=== PATIENT | female | born 1935 | race Caucasian/White ===

== ENCOUNTER 2016-08-28 19:04 | Inpatient (IN) | payer MEDICARE, OTHER ==
[2016-08-28 20:37] LABS: ABSOLUTE BASOPHILS # (AUTO) 0.1 10^3/uL (0.0-0.2); ABSOLUTE LYMPHOCYTES (AUTO) 0.7 10^3/uL (0.5-4.7); ABSOLUTE MONOCYTES (AUTO) 0.6 10^3/uL (0.1-1.4); ABSOLUTE NEUT (AUTO) 6.3 10^3/uL (1.7-8.2); BASOPHILS % (AUTO) 0.9 % (0-2); HEMATOCRIT 34.6 % (36.0-47.0); HEMOGLOBIN 10.6 g/dL (12.0-15.5); HGB HCT DIFFERENCE -2.8; MEAN CORPUSCULAR HEMOGLOBIN 29.9 pg (27.0-33.4); MEAN CORPUSCULAR HGB CONC 30.5 g/dL (32.0-36.0); MEAN CORPUSCULAR VOLUME 98 fl (80-97); MONOCYTES % (AUTO) 7.3 % (3-13); RED BLOOD COUNT 3.53 10^6/uL (3.72-5.28); RED CELL DISTRIBUTION WIDTH 17.8 % (11.5-14.0); SEGMENTED NEUTROPHILS % (AUTO) 82.8 % (42-78); WHITE BLOOD COUNT 7.6 10^3/uL (4.0-10.5)
[2016-08-28 20:42] LABS: PROTHROMBIN TIME 13.7 SEC (11.4-15.4)
[2016-08-28 20:54] LABS: VENOUS BLOOD BASE EXCESS 7.2 mmol/L
[2016-08-28 20:56] LABS: ALANINE AMINOTRANSFERASE 31 U/L (9-52); ALBUMIN 3.7 g/dL (3.5-5.0); ALKALINE PHOSPHATASE 98 U/L (38-126); ANION GAP 10 (5-19); ASPARTATE AMINO TRANSFERASE 23 U/L (14-36); BILIRUBIN,TOTAL 0.4 mg/dL (0.2-1.3); BLOOD UREA NITROGEN 33 mg/dL (7-20); CALCIUM 8.4 mg/dL (8.4-10.2); CARBON DIOXIDE 38 mmol/L (22-30); CHLORIDE 93 mmol/L (98-107); CREATININE RESULT 1.25 mg/dL (0.52-1.25); GLUCOSE 117 mg/dL (75-110); POTASSIUM 5.7 mmol/L (3.6-5.0); SODIUM 140.6 mmol/L (137-145); TOTAL PROTEIN 6.8 g/dL (6.3-8.2)
[2016-08-28 20:59] LABS: VENOUS BLOOD PH 7.09 (7.30-7.42)
--- NOTE | 2016-08-28 21:03 | ER Document Report ---
[id number] ALTERED MENTAL STATUS Mode of Arrival: Medic Information source: Parent Notes: 81-year-old female DO NOT RESUSCITATE presents from home with altered mental status decreased responsiveness Family notes that she was doing well yesterday was noted to be decreased responsiveness today. Patient is supposed to be on BiPAP per refuses to wear it. TRAVEL OUTSIDE OF THE [place] IN LAST 30 DAYS: No - HPI Onset: This morning Onset/Duration: Sudden Quality of pain: No pain Severity: Severe Pain Level: Denies Associated symptoms: Slow to respond, Weakness Exacerbated by: Denies Relieved by: Denies Similar symptoms previously: Yes Recently seen / treated by doctor: Yes - Related Data Allergies/Adverse Reactions: No Known Allergies Allergy (Verified 12/22/15 11:44) Past Medical History - Social History Smoking Status: Never Smoker Cigarette use (# per day): No Chew tobacco use (# tins/day): No Smoking Education Provided: No Family History: Reviewed & Not Pertinent - Past Medical History Cardiac Medical History: Reports: Hx Atrial Fibrillation, Hx Congestive Heart Failure, Hx Coronary Artery Disease, Hx Heart Attack, Hx Hypercholesterolemia, Hx Hypertension Pulmonary Medical History: Reports: Hx COPD, Hx Pneumonia Denies: Hx Tuberculosis Endocrine Medical History: Reports: Hx Diabetes Mellitus Type 1, Hx Diabetes Mellitus Type 2 Musculoskeltal Medical History: Reports Hx Arthritis Psychiatric Medical History: Denies: Hx Depression Past Surgical History: Reports: Hx Appendectomy, Hx Cardiac Catheterization, Hx Orthopedic Surgery - back surgery. Denies: Hx Pacemaker - Immunizations Immunizations up to date: Yes Hx Diphtheria, Pertussis, Tetanus Vaccination: No Hx Pneumococcal Vaccination: 09/04/02 Review of Systems - Review of Systems -: Yes ROS unobtainable due to patient's medical condition Physical Exam - Vital signs Vitals: Resp Pulse Ox 10 L 97 08/28/16 20:10 08/28/16 20:10 PHYSICAL EXAMINATION: GENERAL: Chronically ill-appearing female HEAD: Atraumatic, normocephalic. EYES: Pupils equal round and reactive to light, extraocular movements intact, conjunctiva are normal. ENT: Nares patent, oropharynx clear without exudates. Moist mucous membranes. NECK: Normal range of motion, supple without lymphadenopathy LUNGS: Decreased breath sounds all throughout HEART: Regular rate and rhythm without murmurs ABDOMEN: Soft, nontender, nondistended abdomen. No guarding, no rebound. No masses appreciated. Female : deferred Musculoskeletal: Normal range of motion, no pitting or edema. No cyanosis. NEUROLOGICAL: Patient moans to sternal rub GCS 7 SKIN: Warm, Dry, normal turgor, no rashes or lesions noted. Course - Re-evaluation Re-evalutation: 08/28/16 22:51 I spoke with son and primary care physician, they'll agree that the patient is a DO NOT RESUSCITATE, otherwise this patient would require intubation as she is minimally responsive. I did place her on BiPAP given that her CO2 is quite elevated and her VBG notes respiratory acidosis. I explained to the family that I have very poor prognosis for this patient I will admit to the primary care physician continue BiPAP - Vital Signs Vital signs: Temp Pulse Resp BP Pulse Ox 10 L 97 08/28/16 20:10 08/28/16 20:10 - Laboratory Result Diagrams: 08/28/16 19:50 08/28/16 19:50 Laboratory results interpreted by me: 08/28/16 08/28/16 08/28/16 19:50 19:50 19:50 RBC 3.53 L Hgb 10.6 L Hct 34.6 L MCV 98 H MCHC 30.5 L RDW 17.8 H Seg Neutrophils % 82.8 H Lymphocytes % 9.0 L VBG pH VBG pCO2 VBG HCO3 Potassium 5.7 H Chloride 93 L Carbon Dioxide 38 H BUN 33 H Est GFR ( Amer) 50 L Est GFR (Non-Af Amer) 41 L Glucose 117 H Lactic Acid 0.6 L 08/28/16 20:40 RBC Hgb Hct MCV MCHC RDW Seg Neutrophils % Lymphocytes % VBG pH 7.09 L* VBG pCO2 139.0 H* VBG HCO3 41.0 H Potassium Chloride Carbon Dioxide BUN Est GFR ( Amer) Est GFR (Non-Af Amer) Glucose Lactic Acid - Diagnostic Test Radiology reviewed: Image reviewed, Reports reviewed - EKG Interpretation by Me EKG shows normal: Sinus rhythm, Valencia, Intervals, QRS Complexes Valencia/QRS: LBBB Critical Care Note - Critical Care Note Total time excluding time spent on procedures (mins): 45 Comments: 45 minutes of critical care time spent in direct contact evaluating and reevaluating the patient, treating symptoms, reviewing labs and studies and speaking with family and consultants excluding any procedures Discharge - Discharge Clinical Impression: Acute combined systolic (congestive) and diastolic (congestive) heart failure, Elevated CO2 level, Respiratory distress, minimally responsive, Altered awareness, transient Condition: Stable Disposition: ADMITTED INPATIENT Admitting Provider: [facility] Unit Admitted: Telemetry
--- NOTE | 2016-08-28 21:31 | EKG REPORT ---
SEVERITY:- ABNORMAL ECG - SINUS RHYTHM MULTIPLE ATRIAL PREMATURE COMPLEXES LEFT BUNDLE BRANCH BLOCK : Confirmed by: Seth Osuna MD 28-Aug-2016 21:30:46
[2016-08-28] MEDS ORDERED: ASPIRIN 81 MG TABLET, ENT COATED PO ONE (23:00)
[2016-08-28 23:05] LABS: AMORPHOUS SEDIMENT,URINE 1+ /HPF; APPEARANCE,URINE CLOUDY; BILIRUBIN,URINE NEGATIVE (NEGATIVE); GLUCOSE, URINE NEGATIVE (NEGATIVE); KETONES,URINE NEGATIVE (NEGATIVE); LEUKOCYTE ESTERASE,URINE NEGATIVE (NEGATIVE); NITRITE,URINE NEGATIVE (NEGATIVE); PROTEIN,URINE 100 mg/dL (NEGATIVE); URINE SPECIFIC GRAVITY 1.023; UROBILINOGEN,URINE NEGATIVE mg/dL (<2.0)
[2016-08-28] MEDS ORDERED: LEVALBUTEROL HCL NEB 0.63 MG/3 ML AMPUL NEB PRN (23:26)
[2016-08-28] MEDS ORDERED: NORMAL SALINE 250 ML with FUROSEMIDE 250 MG IV PRN ×2 (23:32)
[2016-08-28] MEDS ORDERED: ATORVASTATIN CALCIUM 20 MG TABLET PO ONE (23:45)
[2016-08-28] MEDS ORDERED: VALSARTAN PO SCH (23:45)
[2016-08-28] MEDS ORDERED: DONEPEZIL HCL 5 MG TABLET PO ONE (23:45)
[2016-08-28] MEDS ORDERED: METOPROLOL SUCCINATE 25 MG TAB.SR.24H PO ONE (23:45)
[2016-08-28] MEDS ORDERED: (PENDING PHARMACY ID) (Linagliptin [Tradjenta] 5 MG) PO SCH (23:45)
[2016-08-28] MEDS ORDERED: (PENDING PHARMACY ID) (Solifenacin Succinate [Vesicare] 5 MG) PO SCH (23:45)
[2016-08-28] MEDS ORDERED: SACUBITRIL PO SCH (23:45)
[2016-08-29] MEDS ORDERED: TOLTERODINE TARTRATE 1 MG TABLET PO ONE (00:30)
[2016-08-29] MEDS ORDERED: SITAGLIPTIN PHOSPHATE 50 MG TABLET PO ONE (00:30)
[2016-08-29 00:54] LABS: LIPASE 17.8 U/L (23-300); MAGNESIUM 2.1 mg/dL (1.6-2.3); PHOSPHORUS 4.8 mg/dL (2.5-4.5)
[2016-08-29 01:01] LABS: PROTHROMBIN TIME 13.9 SEC (11.4-15.4)
[2016-08-29 01:02] LABS: PARTIAL THROMBOPLASTIN TIME 29.8 SEC (23.5-35.8)
[2016-08-29 01:20] LABS: CREATINE KINASE MB 0.78 ng/mL (<4.55); TROPONIN I 0.087 ng/mL
[2016-08-29 01:26] LABS: THYROID STIMULATING HORMONE 1.45 uIU/mL (0.47-4.68)
[2016-08-29 01:47] LABS: URINE BARBITURATES SCREEN NEGATIVE; URINE METHADONE SCREEN NEGATIVE; URINE PHENCYCLIDINE SCREEN NEGATIVE
[2016-08-29] MEDS ORDERED: LORAZEPAM INJ 2 MG/1 ML VIAL IV ONE (02:00)
[2016-08-29] MEDS ORDERED: AMLODIPINE BESYLATE 5 MG TABLET PO ONE (02:00)
[2016-08-29 07:50] LABS: ABSOLUTE EOSINOPHILS # (AUTO) 0.1 10^3/uL (0.0-0.6); ABSOLUTE LYMPHOCYTES (AUTO) 0.7 10^3/uL (0.5-4.7); ABSOLUTE MONOCYTES (AUTO) 0.6 10^3/uL (0.1-1.4); ABSOLUTE NEUT (AUTO) 5.4 10^3/uL (1.7-8.2); BASOPHILS % (AUTO) 0.7 % (0-2); EOSINOPHILS % (AUTO) 0.9 % (0-6); HEMOGLOBIN 10.2 g/dL (12.0-15.5); HGB HCT DIFFERENCE -2.4; LYMPHOCYTES % (AUTO) 10.8 % (13-45); MEAN CORPUSCULAR HEMOGLOBIN 29.7 pg (27.0-33.4); MEAN CORPUSCULAR HGB CONC 30.8 g/dL (32.0-36.0); MEAN CORPUSCULAR VOLUME 96 fl (80-97); MONOCYTES % (AUTO) 8.1 % (3-13); RED BLOOD COUNT 3.42 10^6/uL (3.72-5.28); RED CELL DISTRIBUTION WIDTH 17.1 % (11.5-14.0); SEGMENTED NEUTROPHILS % (AUTO) 79.5 % (42-78); WHITE BLOOD COUNT 6.8 10^3/uL (4.0-10.5)
[2016-08-29 08:08] LABS: ALANINE AMINOTRANSFERASE 32 U/L (9-52); ALBUMIN 3.5 g/dL (3.5-5.0); ALKALINE PHOSPHATASE 80 U/L (38-126); ANION GAP 8 (5-19); ASPARTATE AMINO TRANSFERASE 29 U/L (14-36); BILIRUBIN,TOTAL 0.5 mg/dL (0.2-1.3); BLOOD UREA NITROGEN 40 mg/dL (7-20); CALCIUM 8.9 mg/dL (8.4-10.2); CARBON DIOXIDE 37 mmol/L (22-30); CHLORIDE 97 mmol/L (98-107); CHOLESTEROL 200.61 mg/dL (0-200); CREATINE KINASE 47 U/L (30-135); CREATININE RESULT 1.05 mg/dL (0.52-1.25); Direct HDL 66 mg/dL (>40); GLUCOSE 90 mg/dL (75-110); POTASSIUM 5.5 mmol/L (3.6-5.0); TOTAL PROTEIN 6.6 g/dL (6.3-8.2); TRIGLYCERIDES 93 mg/dL (<150)
[2016-08-29 08:19] LABS: DIRECT LDL 112 mg/dL (<100)
[2016-08-29 08:20] LABS: CREATINE KINASE MB 0.79 ng/mL (<4.55); TROPONIN I 0.099 ng/mL
[2016-08-29] MEDS ORDERED: SUCCINYLCHOLINE CHLORIDE INJ 200 MG/10 ML VIAL ONE (09:51)
[2016-08-29] MEDS ORDERED: DONEPEZIL HCL 5 MG TABLET PO SCH (10:00)
[2016-08-29] MEDS ORDERED: SITAGLIPTIN PHOSPHATE 50 MG TABLET PO SCH (10:00)
[2016-08-29] MEDS ORDERED: ASPIRIN 81 MG TABLET, ENT COATED PO SCH (10:00)
[2016-08-29] MEDS ORDERED: TOLTERODINE TARTRATE 1 MG TABLET PO SCH (10:00)
[2016-08-29] MEDS: HEPARIN SOD (PORCINE) 5,000 UNIT/ML 1 ML SYRINGE SUBCUT SCH ×3 (10:10→22:03)
[2016-08-29] MEDS: METOPROLOL SUCCINATE 25 MG TAB.SR.24H PO SCH (10:10)
[2016-08-29 13:56] LABS: CREATINE KINASE MB 0.74 ng/mL (<4.55); TROPONIN I 0.092 ng/mL
[2016-08-29 15:32] LABS: ARTERIAL BLOOD BASE EXCESS 10.6 mmol/L; ARTERIAL BLOOD O2 SATURATION 95.3 % (94-98)
[2016-08-29] MEDS ORDERED: PHARMACY COMMUNICATION ORDER MC NR (17:15)
--- NOTE | 2016-08-29 17:39 | PDOC H&P ---
History of Present Illness Admission Date/PCP: 08/28/16 23:27 NOELLE GILES, History of Present Illness: YAMIL DELUNA is a 81 year old female with history of chronic combined systolic and diastolic heart failure, chronic obstructive pulmonary disease, she came to the emergency room last night because of altered mental status. She was found to have hypercapnia with venous PCO2 139 and pH 7.09, she was started on positive pressure ventilation, BiPAP. When I saw her on the BiPAP. She was not responding to verbal commands. Repeat ABG was done on FiO2 of 40% was done it showed pH 7.29, PCO2 84 .3., I spoke to patient spouse,the POA and he wants her intubated. The last time she was admitted in this hospital was 07/04/2016 and she was discharged on 07/21/2016. On that admission she had acute hypercapnic respiratory failure and she required positive pressure ventilation. On that admission, but she was not intubated at that time. No history could be obtained from this patient, but she is well-known to me. The ER physician notes suggest she was a DO NOT RESUSCITATE but her spouse did not confirm that to me, so the DO NOT RESUSCITATE status is rescinded and she is a full code Past Medical History Cardiac Medical History: Reports: Atrial Fibrillation, Congestive Heart Failure , Coronary Artery Disease, Myocardial Infarction, Hyperlipidema, Hypertension Pulmonary Medical History: Reports: Chronic Obstructive Pulmonary Disease (COPD) , Pneumonia Endocrine Medical History: Reports: Diabetes Mellitus Type 2 Musculoskeltal Medical History: Reports: Arthritis Past Surgical History Past Surgical History: Reports: Appendectomy, Cardiac Catheterization, Orthopedic Surgery - back surgery Denies: Pacemaker Social History Smoking Status: Former Smoker Frequency of Alcohol Use: None Hx Recreational Drug Use: No Drugs: None Hx Prescription Drug Abuse: No - Advance Directive Resuscitation Status: Do Not Resuscitate Family History Family History: Reviewed & Not Pertinent Parental Family History Reviewed: Yes Children Family History Reviewed: Yes Sibling(s) Family History Reviewed.: Yes Medication/Allergy Home Medications: Aspirin [Aspirin EC] 81 mg PO DAILY 12/08/15 Atorvastatin Calcium 1 tab PO DAILY 12/08/15 Gabapentin 1 tab PO BID 12/08/15 Linagliptin [Tradjenta] 1 tab PO DAILY 12/08/15 Metoprolol Succinate [Toprol Xl] 25 mg PO DAILY 12/08/15 Solifenacin Succinate [Vesicare] 5 mg PO DAILY 12/08/15 Furosemide [Lasix 40 mg Tablet] 40 mg PO QAM #30 tablet 01/02/16 Albuterol Sulfate [Proair HFA Inhalation Aerosol 8.5 gm MDI] 2 puff IH Q4 PRN Oxycodone HCl/Acetaminophen [Oxycodon-Acetaminophen 7.5-325] 1 tab PO Q8 PRN Donepezil HCl [Aricept 5 mg Tablet] 5 mg PO DAILY #30 tablet 07/20/16 Donepezil HCl [Aricept 5 mg Tablet] 1 tab PO DAILY 08/28/16 Sacubitril/Valsartan [Entresto 49 mg/51 mg Tablet] 1 tab PO BID 08/28/16 Venlafaxine HCl ER [Effexor Xr 75 mg Cap.sr] 75 mg PO DAILY 08/28/16 Allergies/Adverse Reactions: No Known Allergies Allergy (Verified 08/28/16 23:38) Review of Systems ROS unobtainable: Due to mental status - She is confused with metabolic encephalopathy Physical Exam Vital Signs: Temp Pulse Resp BP Pulse Ox 98.0 F 95 15 149/62 H 97 08/29/16 12:46 08/29/16 14:00 08/29/16 12:54 08/29/16 12:46 08/29/16 12:54 Intake & Output 08/28/16 08/29/16 08/30/16 06:59 06:59 06:59 Intake Total 0 Output Total 250 Balance -250 0 Weight 60.9 kg General appearance: PRESENT: other - She is on BiPAP Respiratory exam: PRESENT: crackles, rhonchi Cardiovascular exam: PRESENT: +S1, +S2 GI/Abdominal exam: PRESENT: soft Neurological exam: PRESENT: other - Unresponsive Results Laboratory Results: 08/29/16 07:33 08/29/16 07:33 08/29/16 08/29/16 08/29/16 00:11 00:11 00:11 WBC RBC Hgb Hct MCV MCH MCHC RDW Plt Count Seg Neutrophils % Lymphocytes % Monocytes % Eosinophils % Basophils % Absolute Neutrophils Absolute Lymphocytes Absolute Monocytes Absolute Eosinophils Absolute Basophils Carbonic Acid HCO3/H2CO3 Ratio ABG pH ABG pCO2 ABG pO2 ABG HCO3 ABG O2 Saturation ABG Base Excess FiO2 Sodium Potassium Chloride Carbon Dioxide Anion Gap BUN Creatinine Est GFR ( Amer) Est GFR (Non-Af Amer) Glucose Calcium Phosphorus 4.8 H Magnesium 2.1 Total Bilirubin AST ALT Alkaline Phosphatase Ammonia 12.8 Total Protein Albumin Triglycerides Cholesterol LDL Cholesterol Direct VLDL Cholesterol HDL Cholesterol Amylase 38 Lipase 17.8 L TSH 1.45 Free T4 1.56 08/29/16 08/29/16 08/29/16 07:33 07:33 15:10 WBC 6.8 RBC 3.42 L Hgb 10.2 L Hct 33.0 L MCV 96 MCH 29.7 MCHC 30.8 L RDW 17.1 H Plt Count 155 Seg Neutrophils % 79.5 H Lymphocytes % 10.8 L Monocytes % 8.1 Eosinophils % 0.9 Basophils % 0.7 Absolute Neutrophils 5.4 Absolute Lymphocytes 0.7 Absolute Monocytes 0.6 Absolute Eosinophils 0.1 Absolute Basophils 0.0 Carbonic Acid 2.54 H HCO3/H2CO3 Ratio 15:1 ABG pH 7.29 L ABG pCO2 84.3 H* ABG pO2 88.6 ABG HCO3 40.0 H ABG O2 Saturation 95.3 ABG Base Excess 10.6 FiO2 40% Sodium 142.0 Potassium 5.5 H Chloride 97 L Carbon Dioxide 37 H Anion Gap 8 BUN 40 H Creatinine 1.05 Est GFR ( Amer) > 60 Est GFR (Non-Af Amer) 50 L Glucose 90 Calcium 8.9 Phosphorus Magnesium Total Bilirubin 0.5 AST 29 ALT 32 Alkaline Phosphatase 80 Ammonia Total Protein 6.6 Albumin 3.5 Triglycerides 93 Cholesterol 200.61 H LDL Cholesterol Direct 112 H VLDL Cholesterol 19.0 HDL Cholesterol 66 Amylase Lipase TSH Free T4 08/29/16 08/29/16 08/29/16 00:11 00:11 00:11 Creatine Kinase 41 CK-MB (CK-2) 0.78 Troponin I 0.087 NT-Pro-B Natriuret Pep [id number] H 08/29/16 08/29/16 08/29/16 07:33 07:33 13:04 Creatine Kinase 47 38 CK-MB (CK-2) 0.79 Troponin I 0.099 NT-Pro-B Natriuret Pep 08/29/16 13:04 Creatine Kinase CK-MB (CK-2) 0.74 Troponin I 0.092 NT-Pro-B Natriuret Pep Impressions: Chest X-Ray 08/28/16 19:21 IMPRESSION: MODERATE PULMONARY EDEMA WITH BILATERAL PLEURAL EFFUSIONS. Assessment & Plan - Diagnosis (1) Acute hypercapnic respiratory failure Is this a current diagnosis for this admission?: YesPlan: This is most likely due to acute systolic and diastolic heart failure, she would require mechanical ventilation (2) Acute combined systolic (congestive) and diastolic (congestive) heart failure Is this a current diagnosis for this admission?: YesPlan: continue anti chf (3) Chronic obstructive pulmonary disease Qualifiers: COPD type: chronic bronchitis Chronic bronchitis type: unspecified Qualified Code(s): J42 - Unspecified chronic bronchitis Is this a current diagnosis for this admission?: Yes
[2016-08-29 18:19] LABS: ABSOLUTE BASOPHILS # (AUTO) 0.1 10^3/uL (0.0-0.2); ABSOLUTE EOSINOPHILS # (AUTO) 0.1 10^3/uL (0.0-0.6); ABSOLUTE LYMPHOCYTES (AUTO) 1.1 10^3/uL (0.5-4.7); ABSOLUTE MONOCYTES (AUTO) 0.5 10^3/uL (0.1-1.4); ABSOLUTE NEUT (AUTO) 6.4 10^3/uL (1.7-8.2); BASOPHILS % (AUTO) 1.7 % (0-2); EOSINOPHILS % (AUTO) 0.8 % (0-6); HEMATOCRIT 33.3 % (36.0-47.0); HEMOGLOBIN 10.4 g/dL (12.0-15.5); HGB HCT DIFFERENCE -2.1; LYMPHOCYTES % (AUTO) 13.2 % (13-45); MEAN CORPUSCULAR HEMOGLOBIN 29.5 pg (27.0-33.4); MEAN CORPUSCULAR HGB CONC 31.1 g/dL (32.0-36.0); MEAN CORPUSCULAR VOLUME 95 fl (80-97); MONOCYTES % (AUTO) 6.5 % (3-13); RED BLOOD COUNT 3.51 10^6/uL (3.72-5.28); RED CELL DISTRIBUTION WIDTH 17.4 % (11.5-14.0); SEGMENTED NEUTROPHILS % (AUTO) 77.8 % (42-78); WHITE BLOOD COUNT 8.2 10^3/uL (4.0-10.5)
[2016-08-29 18:31] LABS: ARTERIAL BLOOD O2 SATURATION 95.5 % (94-98)
[2016-08-29 18:37] LABS: ALANINE AMINOTRANSFERASE 33 U/L (9-52); ALBUMIN 3.8 g/dL (3.5-5.0); ALKALINE PHOSPHATASE 96 U/L (38-126); ASPARTATE AMINO TRANSFERASE 27 U/L (14-36); BILIRUBIN,TOTAL 0.6 mg/dL (0.2-1.3); BLOOD UREA NITROGEN 37 mg/dL (7-20); CHLORIDE 93 mmol/L (98-107); CREATININE RESULT 1.02 mg/dL (0.52-1.25); GLUCOSE 96 mg/dL (75-110); SODIUM 141.5 mmol/L (137-145)
[2016-08-29 18:44] LABS: ANION GAP 9 (5-19)
[2016-08-29 18:47] LABS: CARBON DIOXIDE 40 mmol/L (22-30)
[2016-08-29] MEDS ORDERED: PROPOFOL 100 ML IV ONE (18:55)
[2016-08-29] MEDS ORDERED: PROPOFOL INJ 200 MG/20 ML VIAL IV ONE (19:06)
[2016-08-29] MEDS ORDERED: LORAZEPAM 24 MG/240 ML BAG IV ONE (19:27)
[2016-08-29] MEDS ORDERED: NOREPINEPHRINE BITARTRATE INJ/PF 4 MG/4 ML SDV IV ONE (19:27)
[2016-08-29] MEDS ORDERED: PROPOFOL 100 ML IV SCH (20:15)
[2016-08-29] MEDS: ATORVASTATIN CALCIUM 20 MG TABLET NG SCH (22:03)
[2016-08-29] MEDS: TOLTERODINE TARTRATE 1 MG TABLET NG SCH (22:03)
[2016-08-29] MEDS: PROPOFOL 100 ML IV PRN (23:54)
[2016-08-30] MEDS: LORAZEPAM 24 MG/ D5W 240 ML IV PRN ×2 (01:53→22:25)
[2016-08-30] MEDS: PROPOFOL 100 ML IV PRN ×3 (04:04→22:24)
[2016-08-30 04:28] LABS: ABSOLUTE BASOPHILS # (AUTO) 0.1 10^3/uL (0.0-0.2); ABSOLUTE EOSINOPHILS # (AUTO) 0.2 10^3/uL (0.0-0.6); ABSOLUTE LYMPHOCYTES (AUTO) 1.7 10^3/uL (0.5-4.7); ABSOLUTE MONOCYTES (AUTO) 0.5 10^3/uL (0.1-1.4); ABSOLUTE NEUT (AUTO) 4.3 10^3/uL (1.7-8.2); BASOPHILS % (AUTO) 1.5 % (0-2); EOSINOPHILS % (AUTO) 2.5 % (0-6); HEMATOCRIT 29.3 % (36.0-47.0); HEMOGLOBIN 9.5 g/dL (12.0-15.5); HGB HCT DIFFERENCE -0.8; MEAN CORPUSCULAR HGB CONC 32.2 g/dL (32.0-36.0); MEAN CORPUSCULAR VOLUME 93 fl (80-97); RED BLOOD COUNT 3.16 10^6/uL (3.72-5.28); WHITE BLOOD COUNT 6.8 10^3/uL (4.0-10.5)
[2016-08-30 04:47] LABS: ALANINE AMINOTRANSFERASE 30 U/L (9-52); ALBUMIN 2.7 g/dL (3.5-5.0); ALKALINE PHOSPHATASE 78 U/L (38-126); ASPARTATE AMINO TRANSFERASE 21 U/L (14-36); BILIRUBIN,TOTAL 0.7 mg/dL (0.2-1.3); BLOOD UREA NITROGEN 36 mg/dL (7-20); CALCIUM 8.5 mg/dL (8.4-10.2); CREATININE RESULT 0.98 mg/dL (0.52-1.25); GLUCOSE 77 mg/dL (75-110); TOTAL PROTEIN 5.6 g/dL (6.3-8.2)
[2016-08-30] MEDS: HEPARIN SOD (PORCINE) 5,000 UNIT/ML 1 ML SYRINGE SUBCUT SCH ×3 (05:06→22:24)
[2016-08-30 05:07] LABS: ANION GAP 10 (5-19); CHLORIDE 89 mmol/L (98-107); SODIUM 136.7 mmol/L (137-145)
[2016-08-30 05:14] LABS: CARBON DIOXIDE 38 mmol/L (22-30); POTASSIUM 3.8 mmol/L (3.6-5.0)
[2016-08-30 07:59] LABS: ARTERIAL BLOOD BASE EXCESS 19.1 mmol/L; ARTERIAL BLOOD O2 SATURATION 95.6 % (94-98)
[2016-08-30] MEDS: METOPROLOL SUCCINATE 25 MG TAB.SR.24H PO SCH (10:01)
[2016-08-30] MEDS: SITAGLIPTIN PHOSPHATE 50 MG TABLET NG SCH (10:01)
[2016-08-30] MEDS: DONEPEZIL HCL 5 MG TABLET NG SCH (10:01)
[2016-08-30] MEDS: ASPIRIN 81 MG TABLET, CHEWABLE NG SCH (10:02)
[2016-08-30] MEDS: TOLTERODINE TARTRATE 1 MG TABLET NG SCH ×2 (10:03→22:24)
[2016-08-30 10:34] LABS: ARTERIAL BLOOD BASE EXCESS 20.4 mmol/L; ARTERIAL BLOOD O2 SATURATION 97.1 % (94-98)
[2016-08-30 13:53] LABS: ARTERIAL BLOOD BASE EXCESS 18.6 mmol/L; ARTERIAL BLOOD O2 SATURATION 97.3 % (94-98)
--- NOTE | 2016-08-30 16:21 | PDOC CONSULTATION ---
Consultation Consult Date: 08/30/16 Attending physician:: NOELLE GILES Consult reason:: hypercapnic resp fail History of Present Illness Admission Date/PCP: 08/28/16 23:27 NOELLE GILES, History of Present Illness: YAMIL DELUNA is a 81 year old female with history of chronic combined systolic and diastolic heart failure, chronic obstructive pulmonary disease, she came to the emergency room last night because of altered mental status. She was found to have hypercapnia with venous PCO2 139 and pH 7.09, she was started on positive pressure ventilation, BiPAP. When I saw her on the BiPAP. She was not responding to verbal commands. Repeat ABG was done on FiO2 of 40% was done it showed pH 7.29, PCO2 84 .3., I spoke to patient spouse,the POA and he wants her intubated. The last time she was admitted in this hospital was 07/04/2016 and she was discharged on 07/21/2016. On that admission she had acute hypercapnic respiratory failure and she required positive pressure ventilation. On that admission, but she was not intubated at that time. No history could be obtained from this patient, but she is well-known to me. The ER physician notes suggest she was a DO NOT RESUSCITATE but her spouse did not confirm that to me, so the DO NOT RESUSCITATE status is rescinded and she is a full code no family member at bedside all information obtained was from active chart and prior medical records Past Medical History Cardiac Medical History: Reports: Atrial Fibrillation, Congestive Heart Failure , Coronary Artery Disease, Myocardial Infarction, Hyperlipidema, Hypertension Pulmonary Medical History: Reports: Chronic Obstructive Pulmonary Disease (COPD) , Pneumonia Denies: Tuberculosis Endocrine Medical History: Reports: Diabetes Mellitus Type 1, Diabetes Mellitus Type 2 Musculoskeltal Medical History: Reports: Arthritis Psychiatric Medical History: Denies: Depression Past Surgical History Past Surgical History: Reports: Appendectomy, Cardiac Catheterization, Orthopedic Surgery - back surgery Denies: Pacemaker Social History Information Source: [facility] Records Lives with: Family Smoking Status: Former Smoker Passive smoke exposure as: Both Frequency of Alcohol Use: None Hx Recreational Drug Use: No Drugs: None Hx Prescription Drug Abuse: No - Advance Directive Resuscitation Status: Do Not Resuscitate Family History Family History: Reviewed & Not Pertinent Parental Family History Reviewed: No Children Family History Reviewed: No Sibling(s) Family History Reviewed.: No Medication/Allergy Home Medications: Aspirin [Aspirin EC] 81 mg PO DAILY 12/08/15 Atorvastatin Calcium 1 tab PO DAILY 12/08/15 Gabapentin 1 tab PO BID 12/08/15 Linagliptin [Tradjenta] 1 tab PO DAILY 12/08/15 Metoprolol Succinate [Toprol Xl] 25 mg PO DAILY 12/08/15 Solifenacin Succinate [Vesicare] 5 mg PO DAILY 12/08/15 Furosemide [Lasix 40 mg Tablet] 40 mg PO QAM #30 tablet 01/02/16 Albuterol Sulfate [Proair HFA Inhalation Aerosol 8.5 gm MDI] 2 puff IH Q4 PRN Oxycodone HCl/Acetaminophen [Oxycodon-Acetaminophen 7.5-325] 1 tab PO Q8 PRN Donepezil HCl [Aricept 5 mg Tablet] 5 mg PO DAILY #30 tablet 07/20/16 Donepezil HCl [Aricept 5 mg Tablet] 1 tab PO DAILY 08/28/16 Sacubitril/Valsartan [Entresto 49 mg/51 mg Tablet] 1 tab PO BID 08/28/16 Venlafaxine HCl ER [Effexor Xr 75 mg Cap.sr] 75 mg PO DAILY 08/28/16 Allergies/Adverse Reactions: No Known Allergies Allergy (Verified 08/28/16 23:38) Review of Systems ROS unobtainable: Due to endotracheal tube Physical Exam Vital Signs: Temp Pulse Resp BP Pulse Ox 97.8 F 79 12 140/46 H 98 08/29/16 17:17 08/30/16 07:00 08/30/16 08:07 08/30/16 08:07 08/30/16 08:35 Intake & Output 08/29/16 08/30/16 08/31/16 06:59 06:59 06:59 Intake Total 558 Output Total 360 0964 125 Balance -250 -1863 -125 Weight 60.9 kg 59.3 kg General appearance: PRESENT: no acute distress, disheveled, thin, well-developed , well-nourished Head exam: PRESENT: atraumatic, normocephalic Eye exam: PRESENT: conjunctiva pale Mouth exam: PRESENT: dry mucosa, neck supple, tongue midline, other - ET tube intact Neck exam: ABSENT: carotid bruit, JVD, lymphadenopathy, thyromegaly Respiratory exam: PRESENT: decreased breath sounds, prolonged expiratory phas, rales, symmetrical, unlabored, wheezes Cardiovascular exam: PRESENT: irregular rhythm GI/Abdominal exam: PRESENT: normal bowel sounds, soft. ABSENT: distended, guarding, mass, organolmegaly, rebound, tenderness Rectal exam: PRESENT: deferred Gentrourinary exam: PRESENT: indwelling catheter Musculoskeletal exam: PRESENT: normal inspection Skin exam: PRESENT: dry, warm Results Laboratory Results: 08/30/16 04:03 08/30/16 04:03 08/29/16 08/29/16 08/29/16 15:10 18:00 18:00 WBC 8.2 RBC 3.51 L Hgb 10.4 L Hct 33.3 L MCV 95 MCH 29.5 MCHC 31.1 L RDW 17.4 H Plt Count 181 Seg Neutrophils % 77.8 Lymphocytes % 13.2 Monocytes % 6.5 Eosinophils % 0.8 Basophils % 1.7 Absolute Neutrophils 6.4 Absolute Lymphocytes 1.1 Absolute Monocytes 0.5 Absolute Eosinophils 0.1 Absolute Basophils 0.1 Carbonic Acid 2.54 H HCO3/H2CO3 Ratio 15:1 ABG pH 7.29 L ABG pCO2 84.3 H* ABG pO2 88.6 ABG HCO3 40.0 H ABG O2 Saturation 95.3 ABG Base Excess 10.6 FiO2 40% Sodium 141.5 Potassium 5.0 Chloride 93 L Carbon Dioxide 40 H* Anion Gap 9 BUN 37 H Creatinine 1.02 Est GFR ( Amer) > 60 Est GFR (Non-Af Amer) 52 L Glucose 96 Calcium 9.0 Total Bilirubin 0.6 AST 27 ALT 33 Alkaline Phosphatase 96 Total Protein 7.0 Albumin 3.8 Triglycerides 08/29/16 08/29/16 08/30/16 18:00 18:15 04:03 WBC 6.8 RBC 3.16 L Hgb 9.5 L Hct 29.3 L MCV 93 MCH 30.0 MCHC 32.2 RDW 17.0 H Plt Count 169 Seg Neutrophils % 63.0 Lymphocytes % 25.0 Monocytes % 8.0 Eosinophils % 2.5 Basophils % 1.5 Absolute Neutrophils 4.3 Absolute Lymphocytes 1.7 Absolute Monocytes 0.5 Absolute Eosinophils 0.2 Absolute Basophils 0.1 Carbonic Acid 2.81 H HCO3/H2CO3 Ratio 14:1 ABG pH 7.27 L ABG pCO2 93.2 H* ABG pO2 93.0 ABG HCO3 42.1 H ABG O2 Saturation 95.5 ABG Base Excess 12.0 FiO2 50% Sodium Potassium Chloride Carbon Dioxide Anion Gap BUN Creatinine Est GFR ( Amer) Est GFR (Non-Af Amer) Glucose Calcium Total Bilirubin AST ALT Alkaline Phosphatase Total Protein Albumin Triglycerides 112 08/30/16 08/30/16 04:03 07:35 WBC RBC Hgb Hct MCV MCH MCHC RDW Plt Count Seg Neutrophils % Lymphocytes % Monocytes % Eosinophils % Basophils % Absolute Neutrophils Absolute Lymphocytes Absolute Monocytes Absolute Eosinophils Absolute Basophils Carbonic Acid 1.27 HCO3/H2CO3 Ratio 33:1 ABG pH 7.62 H* ABG pCO2 42.1 ABG pO2 64.9 L ABG HCO3 42.2 H ABG O2 Saturation 95.6 ABG Base Excess 19.1 FiO2 35% Sodium 136.7 L Potassium 3.8 D Chloride 89 L Carbon Dioxide 38 H Anion Gap 10 BUN 36 H Creatinine 0.98 Est GFR ( Amer) > 60 Est GFR (Non-Af Amer) 54 L Glucose 77 Calcium 8.5 Total Bilirubin 0.7 AST 21 ALT 30 Alkaline Phosphatase 78 Total Protein 5.6 L Albumin 2.7 L Triglycerides 08/29/16 08/29/16 08/29/16 00:11 00:11 00:11 Creatine Kinase 41 CK-MB (CK-2) 0.78 Troponin I 0.087 NT-Pro-B Natriuret Pep 37672 H 08/29/16 08/29/16 08/29/16 07:33 07:33 13:04 Creatine Kinase 47 38 CK-MB (CK-2) 0.79 Troponin I 0.099 NT-Pro-B Natriuret Pep 08/29/16 13:04 Creatine Kinase CK-MB (CK-2) 0.74 Troponin I 0.092 NT-Pro-B Natriuret Pep Impressions: Chest X-Ray 08/30/16 00:00 IMPRESSION: Slight improvement since yesterday. No pneumothorax. Assessment & Plan - Diagnosis (1) Acute combined systolic (congestive) and diastolic (congestive) heart failure Is this a current diagnosis for this admission?: YesPlan: Judicious diuresis (2) Altered awareness, transient Is this a current diagnosis for this admission?: YesPlan: CO2 narcosis (3) Acute hypercapnic respiratory failure Is this a current diagnosis for this admission?: YesPlan: Ventilating well this far cautious not to over ventilate and become too far removed from her baseline (4) Acute hypoxemic respiratory failure Is this a current diagnosis for this admission?: YesPlan: Oxygenating well goal to keep sats between 90 and 92% - Time Critical Time spent with patient: 35 or more minutes - 55 minute
--- NOTE | 2016-08-30 20:46 | PDOC PROGRESS REPORT ---
Subjective Progress Note for:: 08/30/16 Subjective:: Patient sedated and intubated in intensive care unit Physical Exam Vital Signs: Temp Pulse Resp BP Pulse Ox 98.6 F 99 9 L 145/67 H 98 08/30/16 18:00 08/30/16 18:00 08/30/16 19:38 08/30/16 19:38 08/30/16 19:38 Intake & Output 08/29/16 08/30/16 08/31/16 06:59 06:59 06:59 Intake Total 558 250 Output Total 250 9702 3210 Balance -250 -4180 -1223 Weight 60.9 kg 59.3 kg Eye exam: PRESENT: PERRLA Respiratory exam: PRESENT: decreased breath sounds Cardiovascular exam: PRESENT: +S1, +S2 GI/Abdominal exam: PRESENT: soft Results Laboratory Results: 08/30/16 04:03 08/30/16 04:03 08/30/16 08/30/16 08/30/16 04:03 04:03 07:35 WBC 6.8 RBC 3.16 L Hgb 9.5 L Hct 29.3 L MCV 93 MCH 30.0 MCHC 32.2 RDW 17.0 H Plt Count 169 Seg Neutrophils % 63.0 Lymphocytes % 25.0 Monocytes % 8.0 Eosinophils % 2.5 Basophils % 1.5 Absolute Neutrophils 4.3 Absolute Lymphocytes 1.7 Absolute Monocytes 0.5 Absolute Eosinophils 0.2 Absolute Basophils 0.1 Carbonic Acid 1.27 HCO3/H2CO3 Ratio 33:1 ABG pH 7.62 H* ABG pCO2 42.1 ABG pO2 64.9 L ABG HCO3 42.2 H ABG O2 Saturation 95.6 ABG Base Excess 19.1 FiO2 35% Sodium 136.7 L Potassium 3.8 D Chloride 89 L Carbon Dioxide 38 H Anion Gap 10 BUN 36 H Creatinine 0.98 Est GFR ( Amer) > 60 Est GFR (Non-Af Amer) 54 L Glucose 77 Calcium 8.5 Total Bilirubin 0.7 AST 21 ALT 30 Alkaline Phosphatase 78 Total Protein 5.6 L Albumin 2.7 L 08/30/16 08/30/16 10:13 13:34 WBC RBC Hgb Hct MCV MCH MCHC RDW Plt Count Seg Neutrophils % Lymphocytes % Monocytes % Eosinophils % Basophils % Absolute Neutrophils Absolute Lymphocytes Absolute Monocytes Absolute Eosinophils Absolute Basophils Carbonic Acid 1.53 H 1.66 H HCO3/H2CO3 Ratio 29:1 26:1 ABG pH 7.57 H 7.52 H ABG pCO2 50.9 H 55.1 H ABG pO2 82.0 88.7 ABG HCO3 45.1 H 44.3 H ABG O2 Saturation 97.1 97.3 ABG Base Excess 20.4 18.6 FiO2 35% 35% Sodium Potassium Chloride Carbon Dioxide Anion Gap BUN Creatinine Est GFR ( Amer) Est GFR (Non-Af Amer) Glucose Calcium Total Bilirubin AST ALT Alkaline Phosphatase Total Protein Albumin 08/29/16 08/29/16 08/29/16 00:11 00:11 00:11 Creatine Kinase 41 CK-MB (CK-2) 0.78 Troponin I 0.087 NT-Pro-B Natriuret Pep [id number] H 08/29/16 08/29/16 08/29/16 07:33 07:33 13:04 Creatine Kinase 47 38 CK-MB (CK-2) 0.79 Troponin I 0.099 NT-Pro-B Natriuret Pep 08/29/16 13:04 Creatine Kinase CK-MB (CK-2) 0.74 Troponin I 0.092 NT-Pro-B Natriuret Pep Impressions: Chest X-Ray 08/30/16 00:00 IMPRESSION: Slight improvement since yesterday. No pneumothorax. Assessment & Plan - Diagnosis (1) Acute hypercapnic respiratory failure Is this a current diagnosis for this admission?: Yes (2) Acute combined systolic (congestive) and diastolic (congestive) heart failure Is this a current diagnosis for this admission?: Yes (3) Chronic obstructive pulmonary disease Qualifiers: COPD type: chronic bronchitis Chronic bronchitis type: unspecified Qualified Code(s): J42 - Unspecified chronic bronchitis Is this a current diagnosis for this admission?: Yes (4) Hypotension Qualifiers: Hypotension type: unspecified hypotension type Qualified Code(s): I95.9 - Hypotension, unspecified Is this a current diagnosis for this admission?: YesPlan: She is on intravenous norepinephrine
[2016-08-30] MEDS: ATORVASTATIN CALCIUM 20 MG TABLET NG SCH (22:24)
[2016-08-31 04:21] LABS: ABSOLUTE BASOPHILS # (AUTO) 0.1 10^3/uL (0.0-0.2); ABSOLUTE EOSINOPHILS # (AUTO) 0.3 10^3/uL (0.0-0.6); ABSOLUTE LYMPHOCYTES (AUTO) 1.2 10^3/uL (0.5-4.7); ABSOLUTE MONOCYTES (AUTO) 0.6 10^3/uL (0.1-1.4); ABSOLUTE NEUT (AUTO) 4.4 10^3/uL (1.7-8.2); BASOPHILS % (AUTO) 1.4 % (0-2); EOSINOPHILS % (AUTO) 4.5 % (0-6); HEMATOCRIT 33.3 % (36.0-47.0); HEMOGLOBIN 10.7 g/dL (12.0-15.5); HGB HCT DIFFERENCE -1.2; LYMPHOCYTES % (AUTO) 18.7 % (13-45); MEAN CORPUSCULAR HEMOGLOBIN 29.1 pg (27.0-33.4); MEAN CORPUSCULAR HGB CONC 32.1 g/dL (32.0-36.0); MEAN CORPUSCULAR VOLUME 91 fl (80-97); MONOCYTES % (AUTO) 8.8 % (3-13); RED BLOOD COUNT 3.67 10^6/uL (3.72-5.28); RED CELL DISTRIBUTION WIDTH 17.2 % (11.5-14.0); SEGMENTED NEUTROPHILS % (AUTO) 66.6 % (42-78); WHITE BLOOD COUNT 6.7 10^3/uL (4.0-10.5)
[2016-08-31 04:32] LABS: ALANINE AMINOTRANSFERASE 33 U/L (9-52); ALBUMIN 2.7 g/dL (3.5-5.0); ALKALINE PHOSPHATASE 81 U/L (38-126); ASPARTATE AMINO TRANSFERASE 27 U/L (14-36); BILIRUBIN,TOTAL 0.7 mg/dL (0.2-1.3); BLOOD UREA NITROGEN 33 mg/dL (7-20); CALCIUM 8.4 mg/dL (8.4-10.2); CHLORIDE 89 mmol/L (98-107); CREATININE RESULT 0.96 mg/dL (0.52-1.25); GLUCOSE 88 mg/dL (75-110); MAGNESIUM 1.6 mg/dL (1.6-2.3); POTASSIUM 3.8 mmol/L (3.6-5.0); TOTAL PROTEIN 5.8 g/dL (6.3-8.2)
[2016-08-31 04:40] LABS: ANION GAP 6 (5-19)
[2016-08-31 05:11] LABS: CARBON DIOXIDE 43 mmol/L (22-30)
[2016-08-31] MEDS: PROPOFOL 100 ML IV PRN ×2 (05:51→12:52)
[2016-08-31] MEDS: HEPARIN SOD (PORCINE) 5,000 UNIT/ML 1 ML SYRINGE SUBCUT SCH ×3 (05:52→21:33)
[2016-08-31 05:54] LABS: ARTERIAL BLOOD BASE EXCESS 17.7 mmol/L
[2016-08-31 06:00] LABS: APPEARANCE,URINE CLEAR; BILIRUBIN,URINE NEGATIVE (NEGATIVE); GLUCOSE, URINE NEGATIVE (NEGATIVE); KETONES,URINE NEGATIVE (NEGATIVE); LEUKOCYTE ESTERASE,URINE NEGATIVE (NEGATIVE); NITRITE,URINE NEGATIVE (NEGATIVE); PROTEIN,URINE NEGATIVE (NEGATIVE); URINE SPECIFIC GRAVITY 1.009; UROBILINOGEN,URINE NEGATIVE mg/dL (<2.0)
[2016-08-31] MEDS: SITAGLIPTIN PHOSPHATE 50 MG TABLET NG SCH (10:13)
[2016-08-31] MEDS: ASPIRIN 81 MG TABLET, CHEWABLE NG SCH (10:13)
[2016-08-31] MEDS: METOPROLOL SUCCINATE 25 MG TAB.SR.24H PO SCH (10:14)
[2016-08-31] MEDS: DONEPEZIL HCL 5 MG TABLET NG SCH (10:14)
--- NOTE | 2016-08-31 11:28 | PDOC PROGRESS REPORT ---
Subjective Progress Note for:: 08/31/16 Subjective:: intubated sedated Physical Exam Vital Signs: Temp Pulse Resp BP Pulse Ox 98.6 F 83 13 99/61 L 100 08/31/16 08:00 08/31/16 10:00 08/31/16 11:00 08/31/16 10:46 08/31/16 11:00 Intake & Output 08/30/16 08/31/16 09/01/16 06:59 06:59 06:59 Intake Total 558 588 Output Total 7745 2030 275 Balance -1567 -1442 -275 Weight 59.3 kg 56 kg General appearance: PRESENT: disheveled, thin Head exam: PRESENT: atraumatic, normocephalic Eye exam: PRESENT: conjunctiva pale Mouth exam: PRESENT: dry mucosa, neck supple, tongue midline, other - ET tube in place Neck exam: ABSENT: carotid bruit, JVD, lymphadenopathy, thyromegaly Respiratory exam: PRESENT: decreased breath sounds, prolonged expiratory phas, rales, rhonchi, symmetrical, unlabored Cardiovascular exam: PRESENT: RRR, +S1, +S2 Pulses: PRESENT: normal radial pulses GI/Abdominal exam: PRESENT: normal bowel sounds, soft. ABSENT: distended, guarding, mass, organolmegaly, rebound, tenderness Rectal exam: PRESENT: deferred Gentrourinary exam: PRESENT: indwelling catheter Skin exam: PRESENT: dry, warm Results Laboratory Results: 08/31/16 03:55 08/31/16 03:55 08/30/16 08/31/16 08/31/16 13:34 03:55 03:55 WBC 6.7 RBC 3.67 L Hgb 10.7 L Hct 33.3 L MCV 91 MCH 29.1 MCHC 32.1 RDW 17.2 H Plt Count 185 Seg Neutrophils % 66.6 Lymphocytes % 18.7 Monocytes % 8.8 Eosinophils % 4.5 Basophils % 1.4 Absolute Neutrophils 4.4 Absolute Lymphocytes 1.2 Absolute Monocytes 0.6 Absolute Eosinophils 0.3 Absolute Basophils 0.1 Carbonic Acid 1.66 H HCO3/H2CO3 Ratio 26:1 ABG pH 7.52 H ABG pCO2 55.1 H ABG pO2 88.7 ABG HCO3 44.3 H ABG O2 Saturation 97.3 ABG Base Excess 18.6 FiO2 35% Sodium 138.0 Potassium 3.8 Chloride 89 L Carbon Dioxide 43 H* Anion Gap 6 BUN 33 H Creatinine 0.96 Est GFR ( Amer) > 60 Est GFR (Non-Af Amer) 56 L Glucose 88 Calcium 8.4 Magnesium 1.6 Total Bilirubin 0.7 AST 27 ALT 33 Alkaline Phosphatase 81 Total Protein 5.8 L Albumin 2.7 L Urine Color Urine Appearance Urine pH Ur Specific [place] Urine Protein Urine Glucose (UA) Urine Ketones Urine Blood Urine Nitrite Ur Leukocyte Esterase Urine WBC (Auto) 08/31/16 08/31/16 05:35 05:35 WBC RBC Hgb Hct MCV MCH MCHC RDW Plt Count Seg Neutrophils % Lymphocytes % Monocytes % Eosinophils % Basophils % Absolute Neutrophils Absolute Lymphocytes Absolute Monocytes Absolute Eosinophils Absolute Basophils Carbonic Acid 1.72 H HCO3/H2CO3 Ratio 25:1 ABG pH 7.50 H ABG pCO2 57.0 H ABG pO2 102.2 H ABG HCO3 43.7 H ABG O2 Saturation 98.0 ABG Base Excess 17.7 FiO2 35% Sodium Potassium Chloride Carbon Dioxide Anion Gap BUN Creatinine Est GFR ( Amer) Est GFR (Non-Af Amer) Glucose Calcium Magnesium Total Bilirubin AST ALT Alkaline Phosphatase Total Protein Albumin Urine Color YELLOW Urine Appearance CLEAR Urine pH 8.0 Ur Specific [place] 1.009 Urine Protein NEGATIVE Urine Glucose (UA) NEGATIVE Urine Ketones NEGATIVE Urine Blood NEGATIVE Urine Nitrite NEGATIVE Ur Leukocyte Esterase NEGATIVE Urine WBC (Auto) 2 08/29/16 08/29/16 08/29/16 00:11 00:11 00:11 Creatine Kinase 41 CK-MB (CK-2) 0.78 Troponin I 0.087 NT-Pro-B Natriuret Pep [id number] H 08/29/16 08/29/16 08/29/16 07:33 07:33 13:04 Creatine Kinase 47 38 CK-MB (CK-2) 0.79 Troponin I 0.099 NT-Pro-B Natriuret Pep 08/29/16 08/31/16 13:04 03:55 Creatine Kinase CK-MB (CK-2) 0.74 Troponin I 0.092 NT-Pro-B Natriuret Pep [id number] H Impressions: Chest X-Ray 08/31/16 07:00 IMPRESSION: Stable chest. Appropriate support lines and tubes. Findings as above. Assessment & Plan - Diagnosis (1) Acute combined systolic (congestive) and diastolic (congestive) heart failure Is this a current diagnosis for this admission?: YesPlan: profound metabolic alkalosis (2) Altered awareness, transient Is this a current diagnosis for this admission?: YesPlan: CO2 narcosis (3) Acute hypercapnic respiratory failure Is this a current diagnosis for this admission?: YesPlan: ph alkalotic despite increased PCO2 suggesting primay metabolic ;contraction? (4) Acute hypoxemic respiratory failure Is this a current diagnosis for this admission?: YesPlan: Oxygenating well goal to keep sats between 90 and 92% - Time Critical Time spent with patient: 25-34 minutes
[2016-08-31] MEDS: TOLTERODINE TARTRATE 1 MG TABLET NG SCH ×2 (12:52→21:33)
[2016-08-31] MEDS: LORAZEPAM 24 MG/ D5W 240 ML IV PRN (12:52)
--- NOTE | 2016-08-31 17:50 | PDOC PROGRESS REPORT ---
Subjective Progress Note for:: 08/31/16 Subjective:: Patient is sedated and intubated Physical Exam Vital Signs: Temp Pulse Resp BP Pulse Ox 97.7 F 85 9 L 101/68 98 08/31/16 16:00 08/31/16 16:00 08/31/16 16:00 08/31/16 16:00 08/31/16 16:00 Intake & Output 08/30/16 08/31/16 09/01/16 06:59 06:59 06:59 Intake Total 558 588 Output Total 9097 2030 685 Balance -1567 -1442 -685 Weight 59.3 kg 56 kg Respiratory exam: PRESENT: other - There is equal air entry bilaterally Cardiovascular exam: PRESENT: +S1, +S2 GI/Abdominal exam: PRESENT: soft Results Laboratory Results: 08/31/16 03:55 08/31/16 03:55 08/31/16 08/31/16 08/31/16 03:55 03:55 05:35 WBC 6.7 RBC 3.67 L Hgb 10.7 L Hct 33.3 L MCV 91 MCH 29.1 MCHC 32.1 RDW 17.2 H Plt Count 185 Seg Neutrophils % 66.6 Lymphocytes % 18.7 Monocytes % 8.8 Eosinophils % 4.5 Basophils % 1.4 Absolute Neutrophils 4.4 Absolute Lymphocytes 1.2 Absolute Monocytes 0.6 Absolute Eosinophils 0.3 Absolute Basophils 0.1 Carbonic Acid 1.72 H HCO3/H2CO3 Ratio 25:1 ABG pH 7.50 H ABG pCO2 57.0 H ABG pO2 102.2 H ABG HCO3 43.7 H ABG O2 Saturation 98.0 ABG Base Excess 17.7 FiO2 35% Sodium 138.0 Potassium 3.8 Chloride 89 L Carbon Dioxide 43 H* Anion Gap 6 BUN 33 H Creatinine 0.96 Est GFR ( Amer) > 60 Est GFR (Non-Af Amer) 56 L Glucose 88 Calcium 8.4 Magnesium 1.6 Total Bilirubin 0.7 AST 27 ALT 33 Alkaline Phosphatase 81 Total Protein 5.8 L Albumin 2.7 L Urine Color Urine Appearance Urine pH Ur Specific [place] Urine Protein Urine Glucose (UA) Urine Ketones Urine Blood Urine Nitrite Ur Leukocyte Esterase Urine WBC (Auto) 08/31/16 05:35 WBC RBC Hgb Hct MCV MCH MCHC RDW Plt Count Seg Neutrophils % Lymphocytes % Monocytes % Eosinophils % Basophils % Absolute Neutrophils Absolute Lymphocytes Absolute Monocytes Absolute Eosinophils Absolute Basophils Carbonic Acid HCO3/H2CO3 Ratio ABG pH ABG pCO2 ABG pO2 ABG HCO3 ABG O2 Saturation ABG Base Excess FiO2 Sodium Potassium Chloride Carbon Dioxide Anion Gap BUN Creatinine Est GFR ( Amer) Est GFR (Non-Af Amer) Glucose Calcium Magnesium Total Bilirubin AST ALT Alkaline Phosphatase Total Protein Albumin Urine Color YELLOW Urine Appearance CLEAR Urine pH 8.0 Ur Specific [place] 1.009 Urine Protein NEGATIVE Urine Glucose (UA) NEGATIVE Urine Ketones NEGATIVE Urine Blood NEGATIVE Urine Nitrite NEGATIVE Ur Leukocyte Esterase NEGATIVE Urine WBC (Auto) 2 08/29/16 08/29/16 08/29/16 00:11 00:11 00:11 Creatine Kinase 41 CK-MB (CK-2) 0.78 Troponin I 0.087 NT-Pro-B Natriuret Pep [id number] H 08/29/16 08/29/16 08/29/16 07:33 07:33 13:04 Creatine Kinase 47 38 CK-MB (CK-2) 0.79 Troponin I 0.099 NT-Pro-B Natriuret Pep 08/29/16 08/31/16 13:04 03:55 Creatine Kinase CK-MB (CK-2) 0.74 Troponin I 0.092 NT-Pro-B Natriuret Pep [id number] H Impressions: Chest X-Ray 08/31/16 07:00 IMPRESSION: Stable chest. Appropriate support lines and tubes. Findings as above. Assessment & Plan - Diagnosis (1) Acute hypercapnic respiratory failure Is this a current diagnosis for this admission?: Yes (2) Acute combined systolic (congestive) and diastolic (congestive) heart failure Is this a current diagnosis for this admission?: YesPlan: Patient was admitted because of acute pulmonary edema chest x-ray today is clear. There is no acute consolidation to suggest pneumonia (3) Chronic obstructive pulmonary disease Qualifiers: COPD type: chronic bronchitis Chronic bronchitis type: unspecified Qualified Code(s): J42 - Unspecified chronic bronchitis Is this a current diagnosis for this admission?: Yes (4) Hypotension Qualifiers: Hypotension type: unspecified hypotension type Qualified Code(s): I95.9 - Hypotension, unspecified Is this a current diagnosis for this admission?: YesPlan: The blood pressure is improved is normal. He is no longer on IV pressors
[2016-08-31] MEDS: ATORVASTATIN CALCIUM 20 MG TABLET NG SCH (21:32)
[2016-09-01] MEDS: PROPOFOL 100 ML IV PRN ×2 (00:16→19:00)
[2016-09-01 04:13] LABS: ABSOLUTE EOSINOPHILS # (AUTO) 0.3 10^3/uL (0.0-0.6); ABSOLUTE LYMPHOCYTES (AUTO) 1.3 10^3/uL (0.5-4.7); ABSOLUTE MONOCYTES (AUTO) 0.7 10^3/uL (0.1-1.4); ABSOLUTE NEUT (AUTO) 5.3 10^3/uL (1.7-8.2); BASOPHILS % (AUTO) 0.6 % (0-2); EOSINOPHILS % (AUTO) 4.1 % (0-6); HEMATOCRIT 34.8 % (36.0-47.0); HEMOGLOBIN 11.3 g/dL (12.0-15.5); HGB HCT DIFFERENCE -0.9; LYMPHOCYTES % (AUTO) 17.5 % (13-45); MEAN CORPUSCULAR HEMOGLOBIN 29.4 pg (27.0-33.4); MEAN CORPUSCULAR HGB CONC 32.4 g/dL (32.0-36.0); MEAN CORPUSCULAR VOLUME 91 fl (80-97); MONOCYTES % (AUTO) 8.7 % (3-13); RED BLOOD COUNT 3.83 10^6/uL (3.72-5.28); RED CELL DISTRIBUTION WIDTH 17.3 % (11.5-14.0); SEGMENTED NEUTROPHILS % (AUTO) 69.1 % (42-78); WHITE BLOOD COUNT 7.7 10^3/uL (4.0-10.5)
[2016-09-01 04:27] LABS: BLOOD UREA NITROGEN 25 mg/dL (7-20); CALCIUM 8.6 mg/dL (8.4-10.2); CHLORIDE 91 mmol/L (98-107); CREATININE RESULT 0.84 mg/dL (0.52-1.25); GLUCOSE 94 mg/dL (75-110); MAGNESIUM 1.7 mg/dL (1.6-2.3); POTASSIUM 3.7 mmol/L (3.6-5.0); SODIUM 137.1 mmol/L (137-145)
[2016-09-01 04:33] LABS: ANION GAP 8 (5-19)
[2016-09-01 04:39] LABS: CARBON DIOXIDE 38 mmol/L (22-30)
[2016-09-01 05:36] LABS: ARTERIAL BLOOD BASE EXCESS 14.3 mmol/L; ARTERIAL BLOOD O2 SATURATION 96.3 % (94-98)
[2016-09-01] MEDS: HEPARIN SOD (PORCINE) 5,000 UNIT/ML 1 ML SYRINGE SUBCUT SCH ×3 (05:51→23:09)
[2016-09-01] MEDS: ASPIRIN 81 MG TABLET, CHEWABLE NG SCH (09:43)
[2016-09-01] MEDS: METOPROLOL SUCCINATE 25 MG TAB.SR.24H PO SCH (09:43)
[2016-09-01] MEDS: TOLTERODINE TARTRATE 1 MG TABLET NG SCH ×2 (09:44→23:12)
[2016-09-01] MEDS: SITAGLIPTIN PHOSPHATE 50 MG TABLET NG SCH (09:44)
[2016-09-01] MEDS: DONEPEZIL HCL 5 MG TABLET NG SCH (09:44)
--- NOTE | 2016-09-01 19:17 | PDOC PROGRESS REPORT ---
Subjective Progress Note for:: 09/01/16 Subjective:: intubated sedated Physical Exam Vital Signs: Temp Pulse Resp BP Pulse Ox 97.7 F 97 10 L 110/62 96 08/31/16 16:00 09/01/16 07:00 09/01/16 06:09 09/01/16 06:09 09/01/16 06:00 Intake & Output 08/31/16 09/01/16 09/02/16 06:59 06:59 06:59 Intake Total 588 563 Output Total 1713 1153 Balance -1442 -590 Weight 56 kg 56.3 kg General appearance: PRESENT: no acute distress, disheveled, thin, well-developed , well-nourished Head exam: PRESENT: atraumatic, normocephalic Eye exam: PRESENT: conjunctiva pale Mouth exam: PRESENT: dry mucosa, tongue midline, other - ET tube in place Neck exam: ABSENT: carotid bruit, JVD, lymphadenopathy, thyromegaly Respiratory exam: PRESENT: decreased breath sounds, prolonged expiratory phas, rales, symmetrical, unlabored, wheezes Cardiovascular exam: PRESENT: irregular rhythm GI/Abdominal exam: PRESENT: normal bowel sounds, soft. ABSENT: distended, guarding, mass, organolmegaly, rebound, tenderness Rectal exam: PRESENT: deferred Gentrourinary exam: PRESENT: indwelling catheter Musculoskeletal exam: PRESENT: normal inspection Skin exam: PRESENT: dry, warm Results Laboratory Results: 09/01/16 04:03 09/01/16 04:03 09/01/16 09/01/16 09/01/16 04:03 04:03 05:20 WBC 7.7 RBC 3.83 Hgb 11.3 L Hct 34.8 L MCV 91 MCH 29.4 MCHC 32.4 RDW 17.3 H Plt Count 195 Seg Neutrophils % 69.1 Lymphocytes % 17.5 Monocytes % 8.7 Eosinophils % 4.1 Basophils % 0.6 Absolute Neutrophils 5.3 Absolute Lymphocytes 1.3 Absolute Monocytes 0.7 Absolute Eosinophils 0.3 Absolute Basophils 0.0 Carbonic Acid 1.67 H HCO3/H2CO3 Ratio 24:1 ABG pH 7.48 H ABG pCO2 55.4 H ABG pO2 80.0 ABG HCO3 40.2 H ABG O2 Saturation 96.3 ABG Base Excess 14.3 FiO2 30% Sodium 137.1 Potassium 3.7 Chloride 91 L Carbon Dioxide 38 H Anion Gap 8 BUN 25 H Creatinine 0.84 Est GFR ( Amer) > 60 Est GFR (Non-Af Amer) > 60 Glucose 94 Calcium 8.6 Magnesium 1.7 08/29/16 08/29/16 08/29/16 00:11 00:11 00:11 Creatine Kinase 41 CK-MB (CK-2) 0.78 Troponin I 0.087 NT-Pro-B Natriuret Pep [id number] H 08/29/16 08/29/16 08/29/16 07:33 07:33 13:04 Creatine Kinase 47 38 CK-MB (CK-2) 0.79 Troponin I 0.099 NT-Pro-B Natriuret Pep 08/29/16 08/31/16 13:04 03:55 Creatine Kinase CK-MB (CK-2) 0.74 Troponin I 0.092 NT-Pro-B Natriuret Pep [id number] H Impressions: Chest X-Ray 09/01/16 07:00 IMPRESSION: No significant interval change. Findings as noted above Assessment & Plan - Diagnosis (1) Acute combined systolic (congestive) and diastolic (congestive) heart failure Is this a current diagnosis for this admission?: YesPlan: improving but persistent metabolic alkalosis (2) Altered awareness, transient Is this a current diagnosis for this admission?: YesPlan: CO2 narcosis (3) Acute hypercapnic respiratory failure Is this a current diagnosis for this admission?: YesPlan: ph alkalotic despite increased PCO2 (4) Acute hypoxemic respiratory failure Is this a current diagnosis for this admission?: YesPlan: Oxygenating well goal to keep sats between 90 and 92% - Time Critical Time spent with patient: 25-34 minutes
[2016-09-01] MEDS: LORAZEPAM 24 MG/ D5W 240 ML IV PRN (21:51)
[2016-09-01] MEDS: ATORVASTATIN CALCIUM 20 MG TABLET NG SCH (23:12)
[2016-09-02 04:10] LABS: ABSOLUTE BASOPHILS # (AUTO) 0.1 10^3/uL (0.0-0.2); ABSOLUTE EOSINOPHILS # (AUTO) 0.2 10^3/uL (0.0-0.6); ABSOLUTE LYMPHOCYTES (AUTO) 1.4 10^3/uL (0.5-4.7); ABSOLUTE MONOCYTES (AUTO) 0.8 10^3/uL (0.1-1.4); ABSOLUTE NEUT (AUTO) 7.2 10^3/uL (1.7-8.2); BASOPHILS % (AUTO) 1.2 % (0-2); HEMATOCRIT 34.7 % (36.0-47.0); HEMOGLOBIN 11.2 g/dL (12.0-15.5); HGB HCT DIFFERENCE -1.1; LYMPHOCYTES % (AUTO) 14.4 % (13-45); MEAN CORPUSCULAR HEMOGLOBIN 29.1 pg (27.0-33.4); MEAN CORPUSCULAR HGB CONC 32.4 g/dL (32.0-36.0); MEAN CORPUSCULAR VOLUME 90 fl (80-97); MONOCYTES % (AUTO) 8.6 % (3-13); RED BLOOD COUNT 3.86 10^6/uL (3.72-5.28); SEGMENTED NEUTROPHILS % (AUTO) 73.8 % (42-78); WHITE BLOOD COUNT 9.8 10^3/uL (4.0-10.5)
[2016-09-02 04:23] LABS: PROTHROMBIN TIME 13.7 SEC (11.4-15.4)
[2016-09-02 04:24] LABS: PARTIAL THROMBOPLASTIN TIME 45.3 SEC (23.5-35.8)
[2016-09-02 04:25] LABS: ALANINE AMINOTRANSFERASE 35 U/L (9-52); ALBUMIN 2.9 g/dL (3.5-5.0); ALKALINE PHOSPHATASE 93 U/L (38-126); ASPARTATE AMINO TRANSFERASE 34 U/L (14-36); BILIRUBIN,TOTAL 0.6 mg/dL (0.2-1.3); BLOOD UREA NITROGEN 27 mg/dL (7-20); CALCIUM 8.2 mg/dL (8.4-10.2); CHLORIDE 90 mmol/L (98-107); GLUCOSE 116 mg/dL (75-110); MAGNESIUM 1.9 mg/dL (1.6-2.3); POTASSIUM 3.6 mmol/L (3.6-5.0); SODIUM 136.6 mmol/L (137-145); TOTAL PROTEIN 6.4 g/dL (6.3-8.2)
[2016-09-02 04:32] LABS: ANION GAP 8 (5-19)
[2016-09-02 04:34] LABS: CARBON DIOXIDE 39 mmol/L (22-30)
[2016-09-02 05:33] LABS: ARTERIAL BLOOD BASE EXCESS 15.7 mmol/L; ARTERIAL BLOOD O2 SATURATION 96.7 % (94-98)
[2016-09-02] MEDS: HEPARIN SOD (PORCINE) 5,000 UNIT/ML 1 ML SYRINGE SUBCUT SCH ×3 (05:34→22:10)
[2016-09-02] MEDS ORDERED: RISPERIDONE 0.25 MG TABLET NG PRN ×2 (09:18→09:40)
[2016-09-02] MEDS: NORMAL SALINE 1000 ML 1,000 ML IV PRN (10:10)
[2016-09-02] MEDS: ASPIRIN 81 MG TABLET, CHEWABLE NG SCH (10:13)
[2016-09-02] MEDS: SITAGLIPTIN PHOSPHATE 50 MG TABLET NG SCH (10:13)
[2016-09-02] MEDS: TOLTERODINE TARTRATE 1 MG TABLET NG SCH ×2 (10:13→22:10)
[2016-09-02] MEDS: DONEPEZIL HCL 5 MG TABLET NG SCH (10:13)
[2016-09-02] MEDS: METOPROLOL SUCCINATE 25 MG TAB.SR.24H PO SCH (10:14)
--- NOTE | 2016-09-02 16:02 | PDOC PROGRESS REPORT ---
Subjective Progress Note for:: 09/01/16 Subjective:: Patient was seen by the bedside, she continues to be on mechanical ventilation, sedated Physical Exam Vital Signs: Temp Pulse Resp BP Pulse Ox 100.8 F H 95 12 132/61 H 97 09/01/16 19:38 09/01/16 19:00 09/01/16 18:39 09/01/16 18:39 09/01/16 18:39 Intake & Output 08/31/16 09/01/16 09/02/16 06:59 06:59 06:59 Intake Total 588 563 470 Output Total 2030 1153 600 Balance -1442 -590 -130 Weight 56 kg 56.3 kg General appearance: PRESENT: other - Patient is sedated and intubated Respiratory exam: PRESENT: rales, other - There is equal air entry bilaterally Cardiovascular exam: PRESENT: +S1, +S2 GI/Abdominal exam: PRESENT: soft Neurological exam: PRESENT: other - Patient is sedated Results Laboratory Results: 09/01/16 04:03 09/01/16 04:03 09/01/16 09/01/16 09/01/16 04:03 04:03 05:20 WBC 7.7 RBC 3.83 Hgb 11.3 L Hct 34.8 L MCV 91 MCH 29.4 MCHC 32.4 RDW 17.3 H Plt Count 195 Seg Neutrophils % 69.1 Lymphocytes % 17.5 Monocytes % 8.7 Eosinophils % 4.1 Basophils % 0.6 Absolute Neutrophils 5.3 Absolute Lymphocytes 1.3 Absolute Monocytes 0.7 Absolute Eosinophils 0.3 Absolute Basophils 0.0 Carbonic Acid 1.67 H HCO3/H2CO3 Ratio 24:1 ABG pH 7.48 H ABG pCO2 55.4 H ABG pO2 80.0 ABG HCO3 40.2 H ABG O2 Saturation 96.3 ABG Base Excess 14.3 FiO2 30% Sodium 137.1 Potassium 3.7 Chloride 91 L Carbon Dioxide 38 H Anion Gap 8 BUN 25 H Creatinine 0.84 Est GFR ( Amer) > 60 Est GFR (Non-Af Amer) > 60 Glucose 94 Calcium 8.6 Magnesium 1.7 Triglycerides 09/01/16 19:25 WBC RBC Hgb Hct MCV MCH MCHC RDW Plt Count Seg Neutrophils % Lymphocytes % Monocytes % Eosinophils % Basophils % Absolute Neutrophils Absolute Lymphocytes Absolute Monocytes Absolute Eosinophils Absolute Basophils Carbonic Acid HCO3/H2CO3 Ratio ABG pH ABG pCO2 ABG pO2 ABG HCO3 ABG O2 Saturation ABG Base Excess FiO2 Sodium Potassium Chloride Carbon Dioxide Anion Gap BUN Creatinine Est GFR ( Amer) Est GFR (Non-Af Amer) Glucose Calcium Magnesium Triglycerides 112 08/29/16 08/29/16 08/29/16 00:11 00:11 00:11 Creatine Kinase 41 CK-MB (CK-2) 0.78 Troponin I 0.087 NT-Pro-B Natriuret Pep [id number] H 08/29/16 08/29/16 08/29/16 07:33 07:33 13:04 Creatine Kinase 47 38 CK-MB (CK-2) 0.79 Troponin I 0.099 NT-Pro-B Natriuret Pep 08/29/16 08/31/16 13:04 03:55 Creatine Kinase CK-MB (CK-2) 0.74 Troponin I 0.092 NT-Pro-B Natriuret Pep [id number] H Impressions: Chest X-Ray 09/01/16 07:00 IMPRESSION: No significant interval change. Findings as noted above Assessment & Plan - Diagnosis (1) Acute hypercapnic respiratory failure Is this a current diagnosis for this admission?: YesPlan: Patient continues to require mechanical ventilation (2) Acute combined systolic (congestive) and diastolic (congestive) heart failure Is this a current diagnosis for this admission?: Yes (3) Chronic obstructive pulmonary disease Qualifiers: COPD type: chronic bronchitis Chronic bronchitis type: unspecified Qualified Code(s): J42 - Unspecified chronic bronchitis Is this a current diagnosis for this admission?: Yes (4) Hypotension Qualifiers: Hypotension type: unspecified hypotension type Qualified Code(s): I95.9 - Hypotension, unspecified Is this a current diagnosis for this admission?: YesPlan: Patient is of intravenous pressors
--- NOTE | 2016-09-02 16:07 | PDOC PROGRESS REPORT ---
Subjective Progress Note for:: 09/02/16 Subjective:: Patient spouse the POA is agreeable to making a DO NOT RESUSCITATE status. Patient's remains sedated on mechanical ventilation Physical Exam Vital Signs: Temp Pulse Resp BP Pulse Ox 99.3 F 87 11 L 106/61 97 09/02/16 14:00 09/02/16 14:00 09/02/16 15:09 09/02/16 15:09 09/02/16 14:09 Intake & Output 09/01/16 09/02/16 09/03/16 06:59 06:59 06:59 Intake Total 563 854 Output Total 1153 885 155 Balance -590 -31 -155 Weight 56.3 kg 56.9 kg Eye exam: PRESENT: PERRLA Respiratory exam: PRESENT: rales Cardiovascular exam: PRESENT: +S1, +S2 GI/Abdominal exam: PRESENT: soft Results Laboratory Results: 09/02/16 03:36 09/02/16 03:36 09/01/16 09/02/16 09/02/16 19:25 03:36 03:36 WBC 9.8 RBC 3.86 Hgb 11.2 L Hct 34.7 L MCV 90 MCH 29.1 MCHC 32.4 RDW 17.0 H Plt Count 175 Seg Neutrophils % 73.8 Lymphocytes % 14.4 Monocytes % 8.6 Eosinophils % 2.0 Basophils % 1.2 Absolute Neutrophils 7.2 Absolute Lymphocytes 1.4 Absolute Monocytes 0.8 Absolute Eosinophils 0.2 Absolute Basophils 0.1 Carbonic Acid HCO3/H2CO3 Ratio ABG pH ABG pCO2 ABG pO2 ABG HCO3 ABG O2 Saturation ABG Base Excess FiO2 Sodium 136.6 L Potassium 3.6 Chloride 90 L Carbon Dioxide 39 H Anion Gap 8 BUN 27 H Creatinine 0.90 Est GFR ( Amer) > 60 Est GFR (Non-Af Amer) > 60 Glucose 116 H Calcium 8.2 L Magnesium 1.9 Total Bilirubin 0.6 AST 34 ALT 35 Alkaline Phosphatase 93 Total Protein 6.4 Albumin 2.9 L Triglycerides 112 09/02/16 05:15 WBC RBC Hgb Hct MCV MCH MCHC RDW Plt Count Seg Neutrophils % Lymphocytes % Monocytes % Eosinophils % Basophils % Absolute Neutrophils Absolute Lymphocytes Absolute Monocytes Absolute Eosinophils Absolute Basophils Carbonic Acid 1.70 H HCO3/H2CO3 Ratio 24:1 ABG pH 7.48 H ABG pCO2 56.6 H ABG pO2 83.7 ABG HCO3 41.5 H ABG O2 Saturation 96.7 ABG Base Excess 15.7 FiO2 30% Sodium Potassium Chloride Carbon Dioxide Anion Gap BUN Creatinine Est GFR ( Amer) Est GFR (Non-Af Amer) Glucose Calcium Magnesium Total Bilirubin AST ALT Alkaline Phosphatase Total Protein Albumin Triglycerides 08/29/16 08/29/16 08/29/16 00:11 00:11 00:11 Creatine Kinase 41 CK-MB (CK-2) 0.78 Troponin I 0.087 NT-Pro-B Natriuret Pep [id number] H 08/29/16 08/29/16 08/29/16 07:33 07:33 13:04 Creatine Kinase 47 38 CK-MB (CK-2) 0.79 Troponin I 0.099 NT-Pro-B Natriuret Pep 08/29/16 08/31/16 13:04 03:55 Creatine Kinase CK-MB (CK-2) 0.74 Troponin I 0.092 NT-Pro-B Natriuret Pep [id number] H Impressions: Chest X-Ray 09/02/16 07:00 IMPRESSION: No significant interval change. Findings as noted above Assessment & Plan - Diagnosis (1) Acute hypercapnic respiratory failure Is this a current diagnosis for this admission?: Yes (2) Acute combined systolic (congestive) and diastolic (congestive) heart failure Is this a current diagnosis for this admission?: Yes (3) Chronic obstructive pulmonary disease Qualifiers: COPD type: chronic bronchitis Chronic bronchitis type: unspecified Qualified Code(s): J42 - Unspecified chronic bronchitis Is this a current diagnosis for this admission?: Yes (4) Hypotension Qualifiers: Hypotension type: unspecified hypotension type Qualified Code(s): I95.9 - Hypotension, unspecified Is this a current diagnosis for this admission?: YesPlan: The low blood pressure is resolved, she is no longer requiring intravenous pressors.
[2016-09-02] MEDS: DEXTROSE 5%-WATER 250 ML with NOREPINEPHRINE BITARTRATE 4 MG IV PRN ×2 (21:27)
[2016-09-02] MEDS: PROPOFOL 100 ML IV PRN (22:04)
[2016-09-02] MEDS: ATORVASTATIN CALCIUM 20 MG TABLET NG SCH (22:11)
[2016-09-03] MEDS: NORMAL SALINE 1000 ML 1,000 ML IV PRN ×2 (02:31→17:46)
[2016-09-03] MEDS: HEPARIN SOD (PORCINE) 5,000 UNIT/ML 1 ML SYRINGE SUBCUT SCH ×3 (05:07→21:31)
[2016-09-03] MEDS: LORAZEPAM 24 MG/ D5W 240 ML IV PRN (05:08)
[2016-09-03 06:11] LABS: ARTERIAL BLOOD BASE EXCESS 11.2 mmol/L; ARTERIAL BLOOD O2 SATURATION 95.3 % (94-98)
[2016-09-03 06:14] LABS: HEMATOCRIT 33.8 % (36.0-47.0); HEMOGLOBIN 10.7 g/dL (12.0-15.5); HGB HCT DIFFERENCE -1.7; MEAN CORPUSCULAR HEMOGLOBIN 29.1 pg (27.0-33.4); MEAN CORPUSCULAR HGB CONC 31.6 g/dL (32.0-36.0); MEAN CORPUSCULAR VOLUME 92 fl (80-97); RED BLOOD COUNT 3.67 10^6/uL (3.72-5.28); RED CELL DISTRIBUTION WIDTH 17.5 % (11.5-14.0); WHITE BLOOD COUNT 10.4 10^3/uL (4.0-10.5)
[2016-09-03 06:22] LABS: BLOOD UREA NITROGEN 22 mg/dL (7-20); CALCIUM 8.4 mg/dL (8.4-10.2); CREATININE RESULT 0.75 mg/dL (0.52-1.25); GLUCOSE 120 mg/dL (75-110)
[2016-09-03 06:23] LABS: ALANINE AMINOTRANSFERASE 26 U/L (9-52); ALBUMIN 3.1 g/dL (3.5-5.0); ALKALINE PHOSPHATASE 98 U/L (38-126); ANION GAP 5 (5-19); ASPARTATE AMINO TRANSFERASE 36 U/L (14-36); BILIRUBIN,TOTAL 0.7 mg/dL (0.2-1.3); CARBON DIOXIDE 38 mmol/L (22-30); CHLORIDE 97 mmol/L (98-107); POTASSIUM 3.7 mmol/L (3.6-5.0); TOTAL PROTEIN 6.4 g/dL (6.3-8.2)
--- NOTE | 2016-09-03 09:30 | PDOC PROGRESS REPORT ---
Subjective Progress Note for:: 09/03/16 Subjective:: pt is doing same still intubated run .2 Physical Exam Vital Signs: Temp Pulse Resp BP Pulse Ox 100.8 F H 88 27 H 90/54 L 95 09/03/16 07:38 09/03/16 07:38 09/03/16 08:00 09/03/16 07:56 09/03/16 07:56 Intake & Output 09/02/16 09/03/16 09/04/16 06:59 06:59 06:59 Intake Total 854 3209 Output Total 885 1122 40 Balance -31 2086 Weight 56.9 kg 58.8 kg General appearance: PRESENT: other - intubated Head exam: PRESENT: normocephalic Eye exam: PRESENT: PERRLA Mouth exam: PRESENT: neck supple Respiratory exam: PRESENT: decreased breath sounds Cardiovascular exam: PRESENT: +S1, +S2 GI/Abdominal exam: PRESENT: normal bowel sounds, soft Extremities exam: ABSENT: pedal edema Neurological exam: PRESENT: altered, other Additional comments: under sedation Skin exam: PRESENT: dry Results Laboratory Results: 09/03/16 05:45 09/03/16 05:45 09/03/16 09/03/16 09/03/16 05:40 05:45 05:45 WBC 10.4 RBC 3.67 L Hgb 10.7 L Hct 33.8 L MCV 92 MCH 29.1 MCHC 31.6 L RDW 17.5 H Plt Count 160 Carbonic Acid 1.63 H HCO3/H2CO3 Ratio 22:1 ABG pH 7.45 ABG pCO2 54.0 H ABG pO2 74.9 L ABG HCO3 36.7 H ABG O2 Saturation 95.3 ABG Base Excess 11.2 FiO2 40% Sodium 140.0 Potassium 3.7 Chloride 97 L Carbon Dioxide 38 H Anion Gap 5 BUN 22 H Creatinine 0.75 Est GFR ( Amer) > 60 Est GFR (Non-Af Amer) > 60 Glucose 120 H Calcium 8.4 Total Bilirubin 0.7 AST 36 ALT 26 Alkaline Phosphatase 98 Total Protein 6.4 Albumin 3.1 L 08/29/16 08/29/16 08/29/16 00:11 00:11 00:11 Creatine Kinase 41 CK-MB (CK-2) 0.78 Troponin I 0.087 NT-Pro-B Natriuret Pep [id number] H 08/29/16 08/29/16 08/29/16 07:33 07:33 13:04 Creatine Kinase 47 38 CK-MB (CK-2) 0.79 Troponin I 0.099 NT-Pro-B Natriuret Pep 08/29/16 08/31/16 13:04 03:55 Creatine Kinase CK-MB (CK-2) 0.74 Troponin I 0.092 NT-Pro-B Natriuret Pep [id number] H Impressions: Chest X-Ray 09/03/16 07:00 IMPRESSION: Stable appearance of the chest allowing for differences in inspiration. Support lines and tubes remain in place. Assessment & Plan - Diagnosis (1) Altered awareness, transient Is this a current diagnosis for this admission?: YesPlan: from michele umanzor (2) Elevated CO2 level Is this a current diagnosis for this admission?: YesPlan: cont pulmonary mx (3) Acute hypercapnic respiratory failure Is this a current diagnosis for this admission?: YesPlan: f/u pulmonary (4) Acute systolic heart failure Is this a current diagnosis for this admission?: Yes (5) Dementia Qualifiers: Dementia type: unspecified type Dementia behavioral disturbance: without behavioral disturbance Qualified Code(s): F03.90 - Unspecified dementia without behavioral disturbance Is this a current diagnosis for this admission?: Yes (6) Pneumonia Qualifiers: Pneumonia type: aspiration pneumonia Is this a current diagnosis for this admission?: YesPlan: start iv cefepim (7) Type 2 diabetes mellitus Qualifiers: Diabetes mellitus complication status: with unspecified complications Is this a current diagnosis for this admission?: Yes - Time Time Spent with patient: 15-24 minutes Anticipated discharge: Other Within: Other - Inpatient Certification Medical Necessity: Need Close Monitoring Due to Risk of Patient Decompensation, Need for IV Antibiotics, Other - Plan Summary Plan Summary: order all cluture start iv antibiotics
[2016-09-03] MEDS: ASPIRIN 81 MG TABLET, CHEWABLE NG SCH (10:14)
[2016-09-03] MEDS: TOLTERODINE TARTRATE 1 MG TABLET NG SCH ×2 (10:14→21:30)
[2016-09-03] MEDS: ACETAMINOPHEN 325 MG TABLET NG PRN ×3 (10:15→21:34)
[2016-09-03] MEDS: DONEPEZIL HCL 5 MG TABLET NG SCH (10:15)
[2016-09-03] MEDS: CEFEPIME 1 GM/D5W RTU 50 ML IV SCH ×2 (10:16→21:30)
[2016-09-03] MEDS: METOPROLOL SUCCINATE 25 MG TAB.SR.24H PO SCH (10:17)
[2016-09-03] MEDS: SITAGLIPTIN PHOSPHATE 50 MG TABLET NG SCH (10:17)
[2016-09-03] MEDS ORDERED: VANCOMYCIN HCL 0 MG in DEXTROSE 5%-WATER 250 ML IV NR (11:30)
[2016-09-03] MEDS ORDERED: LEVOFLOXACIN 750 MG TABLET PO ONE (12:00)
[2016-09-03] MEDS ORDERED: METOPROLOL TARTRATE 25 MG TABLET PO ONE (12:00)
[2016-09-03] MEDS ORDERED: LEVOFLOXACIN 750 MG TABLET NG ONE (12:00)
[2016-09-03] MEDS ORDERED: RISPERIDONE 0.5 MG TAB.RAPDIS PO ONE (12:30)
[2016-09-03] MEDS: DEXTROSE 5%-WATER 250 ML with NOREPINEPHRINE BITARTRATE 4 MG IV PRN ×2 (12:53)
[2016-09-03] MEDS: VANCOMYCIN HCL 1,000 MG in DEXTROSE 5%-WATER 250 ML IV SCH (14:56)
[2016-09-03] MEDS: PROPOFOL 100 ML IV PRN (17:46)
[2016-09-03] MEDS: RISPERIDONE 0.5 MG TAB.RAPDIS PO SCH (17:48)
[2016-09-03] MEDS: ATORVASTATIN CALCIUM 20 MG TABLET NG SCH (21:31)
[2016-09-04] MEDS: DEXTROSE 5%-WATER 250 ML with NOREPINEPHRINE BITARTRATE 4 MG IV PRN ×2 (01:09)
[2016-09-04 04:42] LABS: ABSOLUTE BASOPHILS # (AUTO) 0.1 10^3/uL (0.0-0.2); ABSOLUTE EOSINOPHILS # (AUTO) 0.6 10^3/uL (0.0-0.6); ABSOLUTE LYMPHOCYTES (AUTO) 1.1 10^3/uL (0.5-4.7); ABSOLUTE MONOCYTES (AUTO) 0.8 10^3/uL (0.1-1.4); ABSOLUTE NEUT (AUTO) 11.7 10^3/uL (1.7-8.2); BASOPHILS % (AUTO) 0.6 % (0-2); EOSINOPHILS % (AUTO) 4.1 % (0-6); HEMATOCRIT 31.8 % (36.0-47.0); HEMOGLOBIN 10.2 g/dL (12.0-15.5); HGB HCT DIFFERENCE -1.2; LYMPHOCYTES % (AUTO) 7.9 % (13-45); MEAN CORPUSCULAR HEMOGLOBIN 29.4 pg (27.0-33.4); MEAN CORPUSCULAR VOLUME 92 fl (80-97); MONOCYTES % (AUTO) 5.9 % (3-13); RED BLOOD COUNT 3.46 10^6/uL (3.72-5.28); RED CELL DISTRIBUTION WIDTH 17.4 % (11.5-14.0); SEGMENTED NEUTROPHILS % (AUTO) 81.5 % (42-78); WHITE BLOOD COUNT 14.3 10^3/uL (4.0-10.5)
[2016-09-04 04:56] LABS: PROTHROMBIN TIME 13.4 SEC (11.4-15.4)
[2016-09-04 04:57] LABS: PARTIAL THROMBOPLASTIN TIME 21.9 SEC (23.5-35.8)
[2016-09-04] MEDS: ACETAMINOPHEN 325 MG TABLET NG PRN ×2 (05:05→17:59)
[2016-09-04 05:06] LABS: ALBUMIN 2.9 g/dL (3.5-5.0); ALKALINE PHOSPHATASE 102 U/L (38-126); ANION GAP 9 (5-19); ASPARTATE AMINO TRANSFERASE 25 U/L (14-36); BILIRUBIN,TOTAL 0.4 mg/dL (0.2-1.3); BLOOD UREA NITROGEN 18 mg/dL (7-20); CALCIUM 8.5 mg/dL (8.4-10.2); CARBON DIOXIDE 31 mmol/L (22-30); CHLORIDE 101 mmol/L (98-107); CREATININE RESULT 0.65 mg/dL (0.52-1.25); GLUCOSE 92 mg/dL (75-110); MAGNESIUM 2.1 mg/dL (1.6-2.3); POTASSIUM 3.9 mmol/L (3.6-5.0); SODIUM 141.3 mmol/L (137-145)
[2016-09-04] MEDS: HEPARIN SOD (PORCINE) 5,000 UNIT/ML 1 ML SYRINGE SUBCUT SCH ×3 (05:07→21:43)
[2016-09-04 05:17] LABS: ALANINE AMINOTRANSFERASE 29 U/L (9-52)
[2016-09-04 05:49] LABS: ARTERIAL BLOOD BASE EXCESS 8.6 mmol/L; ARTERIAL BLOOD O2 SATURATION 94.3 % (94-98)
[2016-09-04] MEDS: NORMAL SALINE 1000 ML 1,000 ML IV PRN ×2 (06:03→21:44)
--- NOTE | 2016-09-04 09:39 | PDOC PROGRESS REPORT ---
Subjective Progress Note for:: 09/04/16 Subjective:: Patient is doing seen patient still running a fever. Patient's cxr show of possible pneumonia. Patient still intubated and under sedation daughter was on the bedside. Discussed with the daughter and the patient's current conditions and poor prognosis Physical Exam Vital Signs: Temp Pulse Resp BP Pulse Ox 99.9 F 82 28 H 103/40 L 97 09/04/16 01:56 09/04/16 09:00 09/04/16 09:00 09/04/16 05:57 09/04/16 09:00 Intake & Output 09/03/16 09/04/16 09/05/16 06:59 06:59 06:59 Intake Total 3209 3444 Output Total 1122 1610 35 Balance 2087 1834 -35 Weight 58.8 kg 60.8 kg General appearance: PRESENT: no acute distress Head exam: PRESENT: normocephalic Eye exam: PRESENT: PERRLA Respiratory exam: PRESENT: decreased breath sounds Cardiovascular exam: PRESENT: +S1, +S2 GI/Abdominal exam: PRESENT: normal bowel sounds, soft Extremities exam: ABSENT: pedal edema Neurological exam: PRESENT: altered Results Laboratory Results: 09/04/16 04:20 09/04/16 04:20 09/04/16 09/04/16 09/04/16 04:20 04:20 04:20 WBC 14.3 H RBC 3.46 L Hgb 10.2 L Hct 31.8 L MCV 92 MCH 29.4 MCHC 32.0 RDW 17.4 H Plt Count 100 L Seg Neutrophils % 81.5 H Lymphocytes % 7.9 L Monocytes % 5.9 Eosinophils % 4.1 Basophils % 0.6 Absolute Neutrophils 11.7 H Absolute Lymphocytes 1.1 Absolute Monocytes 0.8 Absolute Eosinophils 0.6 Absolute Basophils 0.1 Carbonic Acid HCO3/H2CO3 Ratio ABG pH ABG pCO2 ABG pO2 ABG HCO3 ABG O2 Saturation ABG Base Excess FiO2 Sodium 141.3 Potassium 3.9 Chloride 101 Carbon Dioxide 31 H Anion Gap 9 BUN 18 Creatinine 0.65 Est GFR ( Amer) > 60 Est GFR (Non-Af Amer) > 60 Glucose 92 Calcium 8.5 Magnesium 2.1 Total Bilirubin 0.4 AST 25 ALT 29 Alkaline Phosphatase 102 Total Protein 6.0 L Albumin 2.9 L Triglycerides 117 09/04/16 05:20 WBC RBC Hgb Hct MCV MCH MCHC RDW Plt Count Seg Neutrophils % Lymphocytes % Monocytes % Eosinophils % Basophils % Absolute Neutrophils Absolute Lymphocytes Absolute Monocytes Absolute Eosinophils Absolute Basophils Carbonic Acid 1.56 H HCO3/H2CO3 Ratio 22:1 ABG pH 7.44 ABG pCO2 51.8 H ABG pO2 69.4 L ABG HCO3 34.5 H ABG O2 Saturation 94.3 ABG Base Excess 8.6 FiO2 30% Sodium Potassium Chloride Carbon Dioxide Anion Gap BUN Creatinine Est GFR ( Amer) Est GFR (Non-Af Amer) Glucose Calcium Magnesium Total Bilirubin AST ALT Alkaline Phosphatase Total Protein Albumin Triglycerides 08/29/16 08/29/16 08/29/16 00:11 00:11 00:11 Creatine Kinase 41 CK-MB (CK-2) 0.78 Troponin I 0.087 NT-Pro-B Natriuret Pep [id number] H 08/29/16 08/29/16 08/29/16 07:33 07:33 13:04 Creatine Kinase 47 38 CK-MB (CK-2) 0.79 Troponin I 0.099 NT-Pro-B Natriuret Pep 08/29/16 08/31/16 13:04 03:55 Creatine Kinase CK-MB (CK-2) 0.74 Troponin I 0.092 NT-Pro-B Natriuret Pep [id number] H Impressions: Chest X-Ray 09/04/16 07:00 IMPRESSION: Overall stable appearance of the chest in comparison the prior study. Support tubes and lines remain in place. Assessment & Plan - Diagnosis (1) Altered awareness, transient Is this a current diagnosis for this admission?: YesPlan: from michele umanzor (2) Elevated CO2 level Is this a current diagnosis for this admission?: YesPlan: cont pulmonary mx (3) Acute hypercapnic respiratory failure Is this a current diagnosis for this admission?: YesPlan: f/u pulmonary (4) Acute systolic heart failure Is this a current diagnosis for this admission?: Yes (5) Dementia Qualifiers: Dementia type: unspecified type Dementia behavioral disturbance: without behavioral disturbance Qualified Code(s): F03.90 - Unspecified dementia without behavioral disturbance Is this a current diagnosis for this admission?: Yes (6) Pneumonia Qualifiers: Pneumonia type: aspiration pneumonia Is this a current diagnosis for this admission?: YesPlan: start iv cefepim (7) Type 2 diabetes mellitus Qualifiers: Diabetes mellitus complication status: with unspecified complications Is this a current diagnosis for this admission?: Yes - Time Time Spent with patient: 15-24 minutes Medications reviewed and adjusted accordingly: Yes Within: Other - Inpatient Certification Medical Necessity: Significant Comorbidiites Make Outpatient Treatment Too Risky , Need Close Monitoring Due to Risk of Patient Decompensation, Need for IV Antibiotics Post Hospital Care: D/C Biochemistry Specialist Documentation - Plan Summary Plan Summary: Discussed with the daughter regarding the patient's current condition with the poor prognosis and discuss about the possible hospice care and discuss about all options sent and the daughter and daughter will be discussed with the other family member. Continues to follow with the pulmonary and continues the current medications
[2016-09-04] MEDS: CEFEPIME 1 GM/D5W RTU 50 ML IV SCH ×2 (09:51→21:42)
[2016-09-04] MEDS: PROPOFOL 100 ML IV PRN ×2 (09:51→17:07)
[2016-09-04] MEDS: SITAGLIPTIN PHOSPHATE 50 MG TABLET NG SCH (09:52)
[2016-09-04] MEDS: METOPROLOL TARTRATE 25 MG TABLET PO SCH (09:52)
[2016-09-04] MEDS: LEVOFLOXACIN 750 MG TABLET NG SCH (09:52)
[2016-09-04] MEDS: TOLTERODINE TARTRATE 1 MG TABLET NG SCH ×2 (09:52→21:44)
[2016-09-04] MEDS: ASPIRIN 81 MG TABLET, CHEWABLE NG SCH (09:53)
[2016-09-04] MEDS: RISPERIDONE 0.5 MG TAB.RAPDIS PO SCH ×2 (09:53→17:08)
[2016-09-04] MEDS: DONEPEZIL HCL 5 MG TABLET NG SCH (09:53)
[2016-09-04] MEDS: VANCOMYCIN HCL 1,000 MG in DEXTROSE 5%-WATER 250 ML IV SCH (14:08)
[2016-09-04] MEDS: ATORVASTATIN CALCIUM 20 MG TABLET NG SCH (21:42)
[2016-09-05] MEDS: HEPARIN SOD (PORCINE) 5,000 UNIT/ML 1 ML SYRINGE SUBCUT SCH ×3 (06:29→21:36)
[2016-09-05] MEDS: PROPOFOL 100 ML IV PRN ×3 (06:30→21:51)
[2016-09-05 08:47] LABS: ARTERIAL BLOOD O2 SATURATION 93.4 % (94-98)
--- NOTE | 2016-09-05 08:59 | PDOC PROGRESS REPORT ---
Subjective Progress Note for:: 09/05/16 Subjective:: Patient is doing same. And is off the pressor. Still intubated and under sedation Physical Exam Vital Signs: Temp Pulse Resp BP Pulse Ox 100.4 F 97 16 138/45 H 94 09/04/16 20:00 09/05/16 07:00 09/05/16 07:35 09/05/16 07:35 09/05/16 07:35 Intake & Output 09/04/16 09/05/16 09/06/16 06:59 06:59 06:59 Intake Total 3444 2680 Output Total 1610 915 175 Balance 1834 1765 -175 Weight 60.8 kg 62.4 kg General appearance: PRESENT: no acute distress Head exam: PRESENT: normocephalic Eye exam: PRESENT: PERRLA Respiratory exam: PRESENT: decreased breath sounds Cardiovascular exam: PRESENT: +S1, +S2 Extremities exam: ABSENT: pedal edema Neurological exam: PRESENT: altered Additional comments: Under sedation Results Laboratory Results: 09/04/16 04:20 09/04/16 04:20 09/05/16 08:35 Carbonic Acid 1.46 H HCO3/H2CO3 Ratio 21:1 ABG pH 7.43 ABG pCO2 48.4 H ABG pO2 66.4 L ABG HCO3 31.2 H ABG O2 Saturation 93.4 L ABG Base Excess 6.0 FiO2 30% 08/29/16 08/29/16 08/29/16 00:11 00:11 00:11 Creatine Kinase 41 CK-MB (CK-2) 0.78 Troponin I 0.087 NT-Pro-B Natriuret Pep [id number] H 08/29/16 08/29/16 08/29/16 07:33 07:33 13:04 Creatine Kinase 47 38 CK-MB (CK-2) 0.79 Troponin I 0.099 NT-Pro-B Natriuret Pep 08/29/16 08/31/16 13:04 03:55 Creatine Kinase CK-MB (CK-2) 0.74 Troponin I 0.092 NT-Pro-B Natriuret Pep [id number] H Impressions: Chest X-Ray 09/05/16 07:00 IMPRESSION: 1. Support tubes and lines as above. 2. Bibasilar airspace opacities, left greater than right, similar to prior study. Persistent pulmonary vascular congestion interstitial prominence. SUPPORT DEVICE(S) IN EXPECTED LOCATIONS. Assessment & Plan - Diagnosis (1) Altered awareness, transient Is this a current diagnosis for this admission?: YesPlan: from hyercapneia faandreiare (2) Elevated CO2 level Is this a current diagnosis for this admission?: YesPlan: cont pulmonary mx (3) Acute hypercapnic respiratory failure Is this a current diagnosis for this admission?: YesPlan: f/u pulmonary (4) Acute systolic heart failure Is this a current diagnosis for this admission?: Yes (5) Dementia Qualifiers: Dementia type: unspecified type Dementia behavioral disturbance: without behavioral disturbance Qualified Code(s): F03.90 - Unspecified dementia without behavioral disturbance Is this a current diagnosis for this admission?: Yes (6) Pneumonia Qualifiers: Pneumonia type: aspiration pneumonia Is this a current diagnosis for this admission?: YesPlan: start iv cefepim (7) Type 2 diabetes mellitus Qualifiers: Diabetes mellitus complication status: with unspecified complications Is this a current diagnosis for this admission?: Yes - Time Time Spent with patient: 15-24 minutes Medications reviewed and adjusted accordingly: Yes - Inpatient Certification Medical Necessity: Need Close Monitoring Due to Risk of Patient Decompensation, Need for IV Antibiotics - Plan Summary Plan Summary: Check the CBC Chem-7 ABG today and continues the current medications patient still have a very poor prognosis discussed with the family yesterday very extensely and the patient's current conditions
[2016-09-05] MEDS: CEFEPIME 1 GM/D5W RTU 50 ML IV SCH ×2 (09:22→21:36)
[2016-09-05] MEDS: NORMAL SALINE 1000 ML 1,000 ML IV PRN (09:22)
[2016-09-05] MEDS: LEVOFLOXACIN 750 MG TABLET NG SCH (09:23)
[2016-09-05] MEDS: METOPROLOL TARTRATE 25 MG TABLET PO SCH (09:24)
[2016-09-05] MEDS: SITAGLIPTIN PHOSPHATE 50 MG TABLET NG SCH (09:24)
[2016-09-05] MEDS: DONEPEZIL HCL 5 MG TABLET NG SCH (09:24)
[2016-09-05] MEDS: ASPIRIN 81 MG TABLET, CHEWABLE NG SCH (09:24)
[2016-09-05] MEDS: RISPERIDONE 0.5 MG TAB.RAPDIS PO SCH ×2 (09:25→17:02)
[2016-09-05] MEDS: TOLTERODINE TARTRATE 1 MG TABLET NG SCH ×2 (09:25→21:36)
[2016-09-05 09:32] LABS: MEAN CORPUSCULAR VOLUME 91 fl (80-97)
[2016-09-05 09:42] LABS: ABSOLUTE BASOPHILS # (AUTO) 0.1 10^3/uL (0.0-0.2); ABSOLUTE EOSINOPHILS # (AUTO) 0.6 10^3/uL (0.0-0.6); ABSOLUTE LYMPHOCYTES (AUTO) 1.1 10^3/uL (0.5-4.7); ABSOLUTE MONOCYTES (AUTO) 0.8 10^3/uL (0.1-1.4); ABSOLUTE NEUT (AUTO) 6.8 10^3/uL (1.7-8.2); BASOPHILS % (AUTO) 0.7 % (0-2); EOSINOPHILS % (AUTO) 6.4 % (0-6); HEMATOCRIT 28.5 % (36.0-47.0); HEMOGLOBIN 9.2 g/dL (12.0-15.5); HGB HCT DIFFERENCE -0.9; LYMPHOCYTES % (AUTO) 11.8 % (13-45); MEAN CORPUSCULAR HEMOGLOBIN 29.4 pg (27.0-33.4); MEAN CORPUSCULAR HGB CONC 32.4 g/dL (32.0-36.0); MONOCYTES % (AUTO) 8.7 % (3-13); RED BLOOD COUNT 3.14 10^6/uL (3.72-5.28); RED CELL DISTRIBUTION WIDTH 17.5 % (11.5-14.0); SEGMENTED NEUTROPHILS % (AUTO) 72.4 % (42-78); WHITE BLOOD COUNT 9.4 10^3/uL (4.0-10.5)
[2016-09-05 09:54] LABS: ALANINE AMINOTRANSFERASE 25 U/L (9-52); ALBUMIN 2.4 g/dL (3.5-5.0); ALKALINE PHOSPHATASE 93 U/L (38-126); ANION GAP 7 (5-19); ASPARTATE AMINO TRANSFERASE 21 U/L (14-36); BILIRUBIN,TOTAL 0.3 mg/dL (0.2-1.3); BLOOD UREA NITROGEN 18 mg/dL (7-20); CALCIUM 8.3 mg/dL (8.4-10.2); CARBON DIOXIDE 29 mmol/L (22-30); CHLORIDE 105 mmol/L (98-107); CREATININE RESULT 0.72 mg/dL (0.52-1.25); GLUCOSE 92 mg/dL (75-110); SODIUM 140.9 mmol/L (137-145); TOTAL PROTEIN 5.3 g/dL (6.3-8.2)
[2016-09-05] MEDS: VANCOMYCIN HCL 1,000 MG in DEXTROSE 5%-WATER 250 ML IV SCH (14:17)
[2016-09-05] MEDS: ACETAMINOPHEN 325 MG TABLET NG PRN (17:15)
[2016-09-05] MEDS: ATORVASTATIN CALCIUM 20 MG TABLET NG SCH (21:37)
[2016-09-06] MEDS: PROPOFOL 100 ML IV PRN (03:13)
[2016-09-06 04:06] LABS: ABSOLUTE EOSINOPHILS # (AUTO) 0.4 10^3/uL (0.0-0.6); ABSOLUTE LYMPHOCYTES (AUTO) 1.1 10^3/uL (0.5-4.7); ABSOLUTE MONOCYTES (AUTO) 0.8 10^3/uL (0.1-1.4); ABSOLUTE NEUT (AUTO) 6.2 10^3/uL (1.7-8.2); BASOPHILS % (AUTO) 0.5 % (0-2); EOSINOPHILS % (AUTO) 4.8 % (0-6); HEMATOCRIT 29.3 % (36.0-47.0); HEMOGLOBIN 9.5 g/dL (12.0-15.5); HGB HCT DIFFERENCE -0.8; LYMPHOCYTES % (AUTO) 13.1 % (13-45); MEAN CORPUSCULAR HEMOGLOBIN 29.1 pg (27.0-33.4); MEAN CORPUSCULAR HGB CONC 32.3 g/dL (32.0-36.0); MEAN CORPUSCULAR VOLUME 90 fl (80-97); MONOCYTES % (AUTO) 9.8 % (3-13); RED BLOOD COUNT 3.26 10^6/uL (3.72-5.28); RED CELL DISTRIBUTION WIDTH 17.5 % (11.5-14.0); SEGMENTED NEUTROPHILS % (AUTO) 71.8 % (42-78); WHITE BLOOD COUNT 8.6 10^3/uL (4.0-10.5)
[2016-09-06 04:20] LABS: PROTHROMBIN TIME 14.3 SEC (11.4-15.4)
[2016-09-06 04:21] LABS: PARTIAL THROMBOPLASTIN TIME 42.3 SEC (23.5-35.8)
[2016-09-06 04:41] LABS: ALANINE AMINOTRANSFERASE 35 U/L (9-52); ALBUMIN 2.3 g/dL (3.5-5.0); ALKALINE PHOSPHATASE 118 U/L (38-126); ANION GAP 10 (5-19); ASPARTATE AMINO TRANSFERASE 25 U/L (14-36); BILIRUBIN,TOTAL 0.2 mg/dL (0.2-1.3); BLOOD UREA NITROGEN 19 mg/dL (7-20); CALCIUM 8.8 mg/dL (8.4-10.2); CARBON DIOXIDE 26 mmol/L (22-30); CHLORIDE 105 mmol/L (98-107); CREATININE RESULT 0.69 mg/dL (0.52-1.25); GLUCOSE 104 mg/dL (75-110); MAGNESIUM 2.1 mg/dL (1.6-2.3); POTASSIUM 4.4 mmol/L (3.6-5.0); SODIUM 140.8 mmol/L (137-145); TOTAL PROTEIN 5.5 g/dL (6.3-8.2)
[2016-09-06] MEDS: NORMAL SALINE 1000 ML 1,000 ML IV PRN ×2 (05:02→16:41)
[2016-09-06] MEDS: HEPARIN SOD (PORCINE) 5,000 UNIT/ML 1 ML SYRINGE SUBCUT SCH ×3 (05:03→21:27)
[2016-09-06 05:25] LABS: ARTERIAL BLOOD BASE EXCESS 3.5 mmol/L; ARTERIAL BLOOD O2 SATURATION 96.3 % (94-98)
[2016-09-06] MEDS: CEFEPIME 1 GM/D5W RTU 50 ML IV SCH ×2 (11:10→21:27)
[2016-09-06] MEDS: RISPERIDONE 0.5 MG TAB.RAPDIS PO SCH ×2 (11:10→18:03)
[2016-09-06] MEDS: TOLTERODINE TARTRATE 1 MG TABLET NG SCH ×2 (11:12→21:27)
[2016-09-06] MEDS: ASPIRIN 81 MG TABLET, CHEWABLE NG SCH (11:13)
[2016-09-06] MEDS: DONEPEZIL HCL 5 MG TABLET NG SCH (11:13)
[2016-09-06] MEDS: SITAGLIPTIN PHOSPHATE 50 MG TABLET NG SCH (11:13)
[2016-09-06] MEDS: LEVOFLOXACIN 750 MG TABLET NG SCH (11:13)
[2016-09-06] MEDS: METOPROLOL TARTRATE 25 MG TABLET PO SCH (11:14)
[2016-09-06] MEDS: VANCOMYCIN HCL 1,000 MG in DEXTROSE 5%-WATER 250 ML IV SCH (16:43)
--- NOTE | 2016-09-06 18:57 | PDOC PROGRESS REPORT ---
Subjective Progress Note for:: 09/06/16 Subjective:: Patient is sedated on mechanical ventilation Physical Exam Vital Signs: Temp Pulse Resp BP Pulse Ox 100.2 F 78 16 109/46 L 95 09/06/16 16:00 09/06/16 18:00 09/06/16 18:00 09/06/16 18:00 09/06/16 18:00 Intake & Output 09/05/16 09/06/16 09/07/16 06:59 06:59 06:59 Intake Total 2680 3323 1176 Output Total 915 1865 610 Balance 1765 1458 566 Weight 62.4 kg 63.9 kg Eye exam: PRESENT: PERRLA Respiratory exam: PRESENT: crackles Cardiovascular exam: PRESENT: +S1, +S2 GI/Abdominal exam: PRESENT: soft Results Laboratory Results: 09/06/16 03:52 09/06/16 03:52 09/06/16 09/06/16 09/06/16 03:52 03:52 05:12 WBC 8.6 RBC 3.26 L Hgb 9.5 L Hct 29.3 L MCV 90 MCH 29.1 MCHC 32.3 RDW 17.5 H Plt Count 197 Seg Neutrophils % 71.8 Lymphocytes % 13.1 Monocytes % 9.8 Eosinophils % 4.8 Basophils % 0.5 Absolute Neutrophils 6.2 Absolute Lymphocytes 1.1 Absolute Monocytes 0.8 Absolute Eosinophils 0.4 Absolute Basophils 0.0 Carbonic Acid 1.52 H HCO3/H2CO3 Ratio 19:1 ABG pH 7.38 ABG pCO2 50.4 H ABG pO2 85.9 ABG HCO3 29.4 H ABG O2 Saturation 96.3 ABG Base Excess 3.5 FiO2 35% Sodium 140.8 Potassium 4.4 Chloride 105 Carbon Dioxide 26 Anion Gap 10 BUN 19 Creatinine 0.69 Est GFR ( Amer) > 60 Est GFR (Non-Af Amer) > 60 Glucose 104 Calcium 8.8 Magnesium 2.1 Total Bilirubin 0.2 AST 25 ALT 35 Alkaline Phosphatase 118 Total Protein 5.5 L Albumin 2.3 L 09/03/16 09:22 Parikh Catheter Urine Culture - Final Enterococcus Faecalis(Group D) 09/03/16 09:22 Tracheal Aspirate Gram Stain - Final 09/03/16 09:22 Tracheal Aspirate Sputum Culture - Final Staphylococcus Aureus Normal Ermelinda Absent 1208/29/16 08/29/16 00:11 00:11 00:11 Creatine Kinase 41 CK-MB (CK-2) 0.78 Troponin I 0.087 NT-Pro-B Natriuret Pep 03250 H 08/29/16 08/29/16 08/29/16 07:33 07:33 13:04 Creatine Kinase 47 38 CK-MB (CK-2) 0.79 Troponin I 0.099 NT-Pro-B Natriuret Pep 08/29/16 08/31/16 13:04 03:55 Creatine Kinase CK-MB (CK-2) 0.74 Troponin I 0.092 NT-Pro-B Natriuret Pep [id number] H Impressions: Chest X-Ray 09/06/16 07:00 IMPRESSION: Improving CHF. Assessment & Plan - Diagnosis (1) Acute hypercapnic respiratory failure Is this a current diagnosis for this admission?: Yes (2) Acute combined systolic (congestive) and diastolic (congestive) heart failure Is this a current diagnosis for this admission?: Yes (3) Chronic obstructive pulmonary disease Qualifiers: COPD type: chronic bronchitis Chronic bronchitis type: unspecified Qualified Code(s): J42 - Unspecified chronic bronchitis Is this a current diagnosis for this admission?: Yes (4) Hypotension Qualifiers: Hypotension type: unspecified hypotension type Qualified Code(s): I95.9 - Hypotension, unspecified Is this a current diagnosis for this admission?: Yes
[2016-09-06] MEDS: ATORVASTATIN CALCIUM 20 MG TABLET NG SCH (21:27)
[2016-09-07] MEDS: HEPARIN SOD (PORCINE) 5,000 UNIT/ML 1 ML SYRINGE SUBCUT SCH ×3 (05:42→22:17)
[2016-09-07] MEDS: PROPOFOL 100 ML IV PRN ×2 (05:49→21:44)
[2016-09-07] MEDS: CEFEPIME 1 GM/D5W RTU 50 ML IV SCH ×2 (10:33→22:16)
[2016-09-07] MEDS: TOLTERODINE TARTRATE 1 MG TABLET NG SCH ×2 (10:33→22:16)
[2016-09-07] MEDS: DONEPEZIL HCL 5 MG TABLET NG SCH (10:34)
[2016-09-07] MEDS: RISPERIDONE 0.5 MG TAB.RAPDIS PO SCH ×2 (10:34→19:21)
[2016-09-07] MEDS: SITAGLIPTIN PHOSPHATE 50 MG TABLET NG SCH (10:34)
[2016-09-07] MEDS: LEVOFLOXACIN 750 MG TABLET NG SCH (10:34)
[2016-09-07] MEDS: METOPROLOL TARTRATE 25 MG TABLET PO SCH (10:35)
[2016-09-07] MEDS: ASPIRIN 81 MG TABLET, CHEWABLE NG SCH (10:35)
[2016-09-07] MEDS ORDERED: NOREPINEPHRINE BITARTRATE INJ/PF 4 MG/4 ML SDV IV ONE (11:08)
[2016-09-07] MEDS: DEXTROSE 5%-WATER 250 ML with NOREPINEPHRINE BITARTRATE 4 MG IV PRN ×2 (11:13)
[2016-09-07] MEDS: VANCOMYCIN HCL 1,000 MG in DEXTROSE 5%-WATER 250 ML IV SCH (15:50)
--- NOTE | 2016-09-07 16:51 | PDOC PROGRESS REPORT ---
Subjective Progress Note for:: 09/07/16 Subjective:: Patient is intubated and sedated Physical Exam Vital Signs: Temp Pulse Resp BP Pulse Ox 99.3 F 74 18 95/60 L 95 09/07/16 05:59 09/07/16 09:00 09/07/16 14:06 09/07/16 14:06 09/07/16 14:06 Intake & Output 09/06/16 09/07/16 09/08/16 06:59 06:59 06:59 Intake Total 3323 2703 Output Total 1865 1585 650 Balance 1458 1118 -650 Weight 63.9 kg 65.8 kg Eye exam: PRESENT: PERRLA Respiratory exam: PRESENT: rales Cardiovascular exam: PRESENT: +S1, +S2 GI/Abdominal exam: PRESENT: soft Results Laboratory Results: 09/06/16 03:52 09/06/16 03:52 09/03/16 09:22 Parikh Catheter Urine Culture - Final Enterococcus Faecalis(Group D) 08/29/16 08/29/16 08/29/16 00:11 00:11 00:11 Creatine Kinase 41 CK-MB (CK-2) 0.78 Troponin I 0.087 NT-Pro-B Natriuret Pep [id number] H 08/29/16 08/29/16 08/29/16 07:33 07:33 13:04 Creatine Kinase 47 38 CK-MB (CK-2) 0.79 Troponin I 0.099 NT-Pro-B Natriuret Pep 08/29/16 08/31/16 13:04 03:55 Creatine Kinase CK-MB (CK-2) 0.74 Troponin I 0.092 NT-Pro-B Natriuret Pep [id number] H Impressions: Chest X-Ray 09/07/16 07:00 IMPRESSION: 1. Appropriate lines and tubes. 2. Slightly improved aeration. Persistent findings as above. Assessment & Plan - Diagnosis (1) Acute hypercapnic respiratory failure Is this a current diagnosis for this admission?: Yes (2) Acute combined systolic (congestive) and diastolic (congestive) heart failure Is this a current diagnosis for this admission?: Yes (3) Chronic obstructive pulmonary disease Qualifiers: COPD type: chronic bronchitis Chronic bronchitis type: unspecified Qualified Code(s): J42 - Unspecified chronic bronchitis Is this a current diagnosis for this admission?: Yes (4) Hypotension Qualifiers: Hypotension type: unspecified hypotension type Qualified Code(s): I95.9 - Hypotension, unspecified Is this a current diagnosis for this admission?: Yes
--- NOTE | 2016-09-07 17:16 | PDOC PROGRESS REPORT ---
Subjective Progress Note for:: 09/07/16 Subjective:: intubated sedated Physical Exam Vital Signs: Temp Pulse Resp BP Pulse Ox 99.3 F 74 18 95/60 L 95 09/07/16 05:59 09/07/16 09:00 09/07/16 14:06 09/07/16 14:06 09/07/16 14:06 Intake & Output 09/06/16 09/07/16 09/08/16 06:59 06:59 06:59 Intake Total 3323 2703 Output Total 1865 1585 650 Balance 1458 1118 -650 Weight 63.9 kg 65.8 kg General appearance: PRESENT: disheveled, thin Head exam: PRESENT: atraumatic, normocephalic Eye exam: PRESENT: conjunctiva pale Mouth exam: PRESENT: moist, neck supple, tongue midline, other - ET tube in place Neck exam: ABSENT: carotid bruit, JVD, lymphadenopathy, thyromegaly Respiratory exam: PRESENT: decreased breath sounds, prolonged expiratory phas, rhonchi, symmetrical, unlabored, wheezes Cardiovascular exam: PRESENT: RRR, +S1, +S2 Pulses: PRESENT: normal radial pulses GI/Abdominal exam: PRESENT: normal bowel sounds, soft. ABSENT: distended, guarding, mass, organolmegaly, rebound, tenderness Rectal exam: PRESENT: deferred Musculoskeletal exam: PRESENT: normal inspection Skin exam: PRESENT: dry, warm, other - Multiple decubiti Results Laboratory Results: 09/06/16 03:52 09/06/16 03:52 09/03/16 09:22 Parikh Catheter Urine Culture - Final Enterococcus Faecalis(Group D) 08/29/16 08/29/16 08/29/16 00:11 00:11 00:11 Creatine Kinase 41 CK-MB (CK-2) 0.78 Troponin I 0.087 NT-Pro-B Natriuret Pep [id number] H 08/29/16 08/29/16 08/29/16 07:33 07:33 13:04 Creatine Kinase 47 38 CK-MB (CK-2) 0.79 Troponin I 0.099 NT-Pro-B Natriuret Pep 08/29/16 08/31/16 13:04 03:55 Creatine Kinase CK-MB (CK-2) 0.74 Troponin I 0.092 NT-Pro-B Natriuret Pep [id number] H Impressions: Chest X-Ray 09/07/16 07:00 IMPRESSION: 1. Appropriate lines and tubes. 2. Slightly improved aeration. Persistent findings as above. Assessment & Plan - Diagnosis (1) Acute combined systolic (congestive) and diastolic (congestive) heart failure Is this a current diagnosis for this admission?: YesPlan: improving but persistent metabolic alkalosis (2) Altered awareness, transient Is this a current diagnosis for this admission?: YesPlan: CO2 narcosis (3) Acute hypercapnic respiratory failure Is this a current diagnosis for this admission?: YesPlan: ph alkalotic despite increased PCO2 (4) Acute hypoxemic respiratory failure Is this a current diagnosis for this admission?: YesPlan: Oxygenating well goal to keep sats between 90 and 92% - Time Critical Time spent with patient: 25-34 minutes
--- NOTE | 2016-09-07 17:19 | PDOC PROGRESS REPORT ---
Subjective Progress Note for:: 09/06/16 Subjective:: intubated sedated Physical Exam Vital Signs: Temp Pulse Resp BP Pulse Ox 100.0 F 87 25 H 98/59 L 95 09/06/16 12:00 09/06/16 14:00 09/06/16 14:00 09/06/16 14:00 09/06/16 14:47 Intake & Output 09/05/16 09/06/16 09/07/16 06:59 06:59 06:59 Intake Total 2680 3323 Output Total 915 1865 360 Balance 1765 1458 -360 Weight 62.4 kg 63.9 kg General appearance: PRESENT: no acute distress, disheveled, thin Head exam: PRESENT: atraumatic, normocephalic Eye exam: PRESENT: conjunctiva pale Mouth exam: PRESENT: moist, neck supple, tongue midline, other - ET tube in place Neck exam: ABSENT: carotid bruit, JVD, lymphadenopathy, thyromegaly Respiratory exam: PRESENT: decreased breath sounds, prolonged expiratory phas, rhonchi, symmetrical, unlabored, wheezes Cardiovascular exam: PRESENT: RRR, +S1, +S2 GI/Abdominal exam: PRESENT: normal bowel sounds, soft. ABSENT: distended, guarding, mass, organolmegaly, rebound, tenderness Rectal exam: PRESENT: deferred Gentrourinary exam: PRESENT: indwelling catheter Musculoskeletal exam: PRESENT: normal inspection Skin exam: PRESENT: dry, warm, other - Multiple decubitus Results Laboratory Results: 09/06/16 03:52 09/06/16 03:52 09/06/16 09/06/16 09/06/16 03:52 03:52 05:12 WBC 8.6 RBC 3.26 L Hgb 9.5 L Hct 29.3 L MCV 90 MCH 29.1 MCHC 32.3 RDW 17.5 H Plt Count 197 Seg Neutrophils % 71.8 Lymphocytes % 13.1 Monocytes % 9.8 Eosinophils % 4.8 Basophils % 0.5 Absolute Neutrophils 6.2 Absolute Lymphocytes 1.1 Absolute Monocytes 0.8 Absolute Eosinophils 0.4 Absolute Basophils 0.0 Carbonic Acid 1.52 H HCO3/H2CO3 Ratio 19:1 ABG pH 7.38 ABG pCO2 50.4 H ABG pO2 85.9 ABG HCO3 29.4 H ABG O2 Saturation 96.3 ABG Base Excess 3.5 FiO2 35% Sodium 140.8 Potassium 4.4 Chloride 105 Carbon Dioxide 26 Anion Gap 10 BUN 19 Creatinine 0.69 Est GFR ( Amer) > 60 Est GFR (Non-Af Amer) > 60 Glucose 104 Calcium 8.8 Magnesium 2.1 Total Bilirubin 0.2 AST 25 ALT 35 Alkaline Phosphatase 118 Total Protein 5.5 L Albumin 2.3 L 09/03/16 09:22 Parikh Catheter Urine Culture - Final Enterococcus Faecalis(Group D) 09/03/16 09:22 Tracheal Aspirate Gram Stain - Final 09/03/16 09:22 Tracheal Aspirate Sputum Culture - Final Staphylococcus Aureus Normal Ermelinda Absent 08/29/16 08/29/16 08/29/16 00:11 00:11 00:11 Creatine Kinase 41 CK-MB (CK-2) 0.78 Troponin I 0.087 NT-Pro-B Natriuret Pep [id number] H 08/29/16 08/29/16 08/29/16 07:33 07:33 13:04 Creatine Kinase 47 38 CK-MB (CK-2) 0.79 Troponin I 0.099 NT-Pro-B Natriuret Pep 08/29/16 08/31/16 13:04 03:55 Creatine Kinase CK-MB (CK-2) 0.74 Troponin I 0.092 NT-Pro-B Natriuret Pep [id number] H Impressions: Chest X-Ray 09/06/16 07:00 IMPRESSION: Improving CHF. Assessment & Plan - Diagnosis (1) Acute combined systolic (congestive) and diastolic (congestive) heart failure Is this a current diagnosis for this admission?: YesPlan: improving but persistent metabolic alkalosis (2) Altered awareness, transient Is this a current diagnosis for this admission?: YesPlan: CO2 narcosis (3) Acute hypercapnic respiratory failure Is this a current diagnosis for this admission?: YesPlan: ph alkalotic despite increased PCO2 (4) Acute hypoxemic respiratory failure Is this a current diagnosis for this admission?: YesPlan: Oxygenating well goal to keep sats between 90 and 92% - Time Critical Time spent with patient: 25-34 minutes
--- NOTE | 2016-09-07 17:21 | PDOC PROGRESS REPORT ---
Subjective Progress Note for:: 09/05/16 Subjective:: intubated sedated Physical Exam Vital Signs: Temp Pulse Resp BP Pulse Ox 100.4 F 74 19 102/43 L 95 09/04/16 20:00 09/05/16 10:15 09/05/16 10:15 09/05/16 10:15 09/05/16 10:15 Intake & Output 09/04/16 09/05/16 09/06/16 06:59 06:59 06:59 Intake Total 3444 2680 30 Output Total 1610 915 300 Balance 1834 1765 -270 Weight 60.8 kg 62.4 kg General appearance: PRESENT: no acute distress, disheveled, thin Head exam: PRESENT: atraumatic, normocephalic Eye exam: PRESENT: conjunctiva pale Mouth exam: PRESENT: moist, neck supple, tongue midline, other - ET tube in place Neck exam: ABSENT: carotid bruit, JVD, lymphadenopathy, thyromegaly Respiratory exam: PRESENT: decreased breath sounds, prolonged expiratory phas, rhonchi, symmetrical, unlabored, wheezes Cardiovascular exam: PRESENT: RRR, +S1 Pulses: PRESENT: normal radial pulses GI/Abdominal exam: PRESENT: normal bowel sounds, soft. ABSENT: distended, guarding, mass, organolmegaly, rebound, tenderness Rectal exam: PRESENT: deferred Gentrourinary exam: PRESENT: indwelling catheter Musculoskeletal exam: PRESENT: normal inspection Skin exam: PRESENT: dry, warm, other - Multiple decubitus Results Laboratory Results: 09/05/16 09:23 09/05/16 09:23 09/05/16 09/05/16 09/05/16 08:35 09:23 09:23 WBC 9.4 RBC 3.14 L Hgb 9.2 L Hct 28.5 L MCV 91 MCH 29.4 MCHC 32.4 RDW 17.5 H Plt Count 197 Seg Neutrophils % 72.4 Lymphocytes % 11.8 L Monocytes % 8.7 Eosinophils % 6.4 H Basophils % 0.7 Absolute Neutrophils 6.8 Absolute Lymphocytes 1.1 Absolute Monocytes 0.8 Absolute Eosinophils 0.6 Absolute Basophils 0.1 Carbonic Acid 1.46 H HCO3/H2CO3 Ratio 21:1 ABG pH 7.43 ABG pCO2 48.4 H ABG pO2 66.4 L ABG HCO3 31.2 H ABG O2 Saturation 93.4 L ABG Base Excess 6.0 FiO2 30% Sodium 140.9 Potassium 4.0 Chloride 105 Carbon Dioxide 29 Anion Gap 7 BUN 18 Creatinine 0.72 Est GFR ( Amer) > 60 Est GFR (Non-Af Amer) > 60 Glucose 92 Calcium 8.3 L Total Bilirubin 0.3 AST 21 ALT 25 Alkaline Phosphatase 93 Total Protein 5.3 L Albumin 2.4 L 08/29/16 08/29/16 08/29/16 00:11 00:11 00:11 Creatine Kinase 41 CK-MB (CK-2) 0.78 Troponin I 0.087 NT-Pro-B Natriuret Pep [id number] H 08/29/16 08/29/16 08/29/16 07:33 07:33 13:04 Creatine Kinase 47 38 CK-MB (CK-2) 0.79 Troponin I 0.099 NT-Pro-B Natriuret Pep 08/29/16 08/31/16 13:04 03:55 Creatine Kinase CK-MB (CK-2) 0.74 Troponin I 0.092 NT-Pro-B Natriuret Pep [id number] H Impressions: Chest X-Ray 09/05/16 07:00 IMPRESSION: 1. Support tubes and lines as above. 2. Bibasilar airspace opacities, left greater than right, similar to prior study. Persistent pulmonary vascular congestion interstitial prominence. SUPPORT DEVICE(S) IN EXPECTED LOCATIONS. Assessment & Plan - Diagnosis (1) Acute combined systolic (congestive) and diastolic (congestive) heart failure Is this a current diagnosis for this admission?: YesPlan: improving but persistent metabolic alkalosis (2) Altered awareness, transient Is this a current diagnosis for this admission?: YesPlan: CO2 narcosis (3) Acute hypercapnic respiratory failure Is this a current diagnosis for this admission?: YesPlan: ph alkalotic despite increased PCO2 (4) Acute hypoxemic respiratory failure Is this a current diagnosis for this admission?: YesPlan: Oxygenating well goal to keep sats between 90 and 92% - Time Critical Time spent with patient: 25-34 minutes
--- NOTE | 2016-09-07 17:22 | PDOC PROGRESS REPORT ---
Subjective Progress Note for:: 09/02/16 Subjective:: intubated sedated Physical Exam Vital Signs: Temp Pulse Resp BP Pulse Ox 100.8 F H 115 H 12 128/53 H 92 09/02/16 08:00 09/02/16 08:00 09/02/16 08:00 09/02/16 08:00 09/02/16 09:37 Intake & Output 09/01/16 09/02/16 09/03/16 06:59 06:59 06:59 Intake Total 563 854 Output Total 1153 885 45 Balance -590 -31 -45 Weight 56.3 kg 56.9 kg General appearance: PRESENT: no acute distress, disheveled, thin Head exam: PRESENT: atraumatic, normocephalic Eye exam: PRESENT: conjunctiva pale Mouth exam: PRESENT: moist, neck supple, tongue midline, other - ET tube in place Respiratory exam: PRESENT: decreased breath sounds, prolonged expiratory phas, rhonchi, unlabored, wheezes Cardiovascular exam: PRESENT: RRR, +S1, +S2 Pulses: PRESENT: normal radial pulses GI/Abdominal exam: PRESENT: normal bowel sounds, soft. ABSENT: distended, guarding, mass, organolmegaly, rebound, tenderness Rectal exam: PRESENT: deferred Gentrourinary exam: PRESENT: indwelling catheter Musculoskeletal exam: PRESENT: normal inspection Skin exam: PRESENT: dry, warm, other - Multiple decubitus Results Laboratory Results: 09/02/16 03:36 09/02/16 03:36 09/01/16 09/02/16 09/02/16 19:25 03:36 03:36 WBC 9.8 RBC 3.86 Hgb 11.2 L Hct 34.7 L MCV 90 MCH 29.1 MCHC 32.4 RDW 17.0 H Plt Count 175 Seg Neutrophils % 73.8 Lymphocytes % 14.4 Monocytes % 8.6 Eosinophils % 2.0 Basophils % 1.2 Absolute Neutrophils 7.2 Absolute Lymphocytes 1.4 Absolute Monocytes 0.8 Absolute Eosinophils 0.2 Absolute Basophils 0.1 Carbonic Acid HCO3/H2CO3 Ratio ABG pH ABG pCO2 ABG pO2 ABG HCO3 ABG O2 Saturation ABG Base Excess FiO2 Sodium 136.6 L Potassium 3.6 Chloride 90 L Carbon Dioxide 39 H Anion Gap 8 BUN 27 H Creatinine 0.90 Est GFR ( Amer) > 60 Est GFR (Non-Af Amer) > 60 Glucose 116 H Calcium 8.2 L Magnesium 1.9 Total Bilirubin 0.6 AST 34 ALT 35 Alkaline Phosphatase 93 Total Protein 6.4 Albumin 2.9 L Triglycerides 112 09/02/16 05:15 WBC RBC Hgb Hct MCV MCH MCHC RDW Plt Count Seg Neutrophils % Lymphocytes % Monocytes % Eosinophils % Basophils % Absolute Neutrophils Absolute Lymphocytes Absolute Monocytes Absolute Eosinophils Absolute Basophils Carbonic Acid 1.70 H HCO3/H2CO3 Ratio 24:1 ABG pH 7.48 H ABG pCO2 56.6 H ABG pO2 83.7 ABG HCO3 41.5 H ABG O2 Saturation 96.7 ABG Base Excess 15.7 FiO2 30% Sodium Potassium Chloride Carbon Dioxide Anion Gap BUN Creatinine Est GFR ( Amer) Est GFR (Non-Af Amer) Glucose Calcium Magnesium Total Bilirubin AST ALT Alkaline Phosphatase Total Protein Albumin Triglycerides 08/29/16 08/29/16 08/29/16 00:11 00:11 00:11 Creatine Kinase 41 CK-MB (CK-2) 0.78 Troponin I 0.087 NT-Pro-B Natriuret Pep 13032 H 08/29/16 08/29/16 08/29/16 07:33 07:33 13:04 Creatine Kinase 47 38 CK-MB (CK-2) 0.79 Troponin I 0.099 NT-Pro-B Natriuret Pep 08/29/16 08/31/16 13:04 03:55 Creatine Kinase CK-MB (CK-2) 0.74 Troponin I 0.092 NT-Pro-B Natriuret Pep 13817 H Impressions: Chest X-Ray 09/02/16 07:00 IMPRESSION: No significant interval change. Findings as noted above Assessment & Plan - Diagnosis (1) Acute combined systolic (congestive) and diastolic (congestive) heart failure Is this a current diagnosis for this admission?: Yes (2) Altered awareness, transient Is this a current diagnosis for this admission?: Yes (3) Acute hypercapnic respiratory failure Is this a current diagnosis for this admission?: Yes (4) Acute hypoxemic respiratory failure Is this a current diagnosis for this admission?: Yes
--- NOTE | 2016-09-07 17:25 | PDOC PROGRESS REPORT ---
Subjective Progress Note for:: 09/03/16 Subjective:: intubated sedated Physical Exam Vital Signs: Temp Pulse Resp BP Pulse Ox 101.7 F H 90 28 H 101/87 H 94 09/03/16 09:37 09/03/16 09:37 09/03/16 10:11 09/03/16 10:11 09/03/16 10:11 Intake & Output 09/02/16 09/03/16 09/04/16 06:59 06:59 06:59 Intake Total 854 3209 Output Total 885 1122 80 Balance -31 2086 Weight 56.9 kg 58.8 kg General appearance: PRESENT: no acute distress, disheveled, thin Head exam: PRESENT: atraumatic, normocephalic Eye exam: PRESENT: conjunctiva pale Mouth exam: PRESENT: moist, neck supple, tongue midline, other Respiratory exam: PRESENT: decreased breath sounds, prolonged expiratory phas, rhonchi, symmetrical, unlabored, wheezes Cardiovascular exam: PRESENT: RRR, +S1, +S2 Pulses: PRESENT: normal radial pulses GI/Abdominal exam: PRESENT: normal bowel sounds, soft. ABSENT: distended, guarding, mass, organolmegaly, rebound, tenderness Rectal exam: PRESENT: deferred Gentrourinary exam: PRESENT: indwelling catheter Musculoskeletal exam: PRESENT: normal inspection Skin exam: PRESENT: dry, warm, other Results Laboratory Results: 09/03/16 05:45 09/03/16 05:45 09/03/16 09/03/16 09/03/16 05:40 05:45 05:45 WBC 10.4 RBC 3.67 L Hgb 10.7 L Hct 33.8 L MCV 92 MCH 29.1 MCHC 31.6 L RDW 17.5 H Plt Count 160 Carbonic Acid 1.63 H HCO3/H2CO3 Ratio 22:1 ABG pH 7.45 ABG pCO2 54.0 H ABG pO2 74.9 L ABG HCO3 36.7 H ABG O2 Saturation 95.3 ABG Base Excess 11.2 FiO2 40% Sodium 140.0 Potassium 3.7 Chloride 97 L Carbon Dioxide 38 H Anion Gap 5 BUN 22 H Creatinine 0.75 Est GFR ( Amer) > 60 Est GFR (Non-Af Amer) > 60 Glucose 120 H Calcium 8.4 Total Bilirubin 0.7 AST 36 ALT 26 Alkaline Phosphatase 98 Total Protein 6.4 Albumin 3.1 L 08/29/16 08/29/16 08/29/16 00:11 00:11 00:11 Creatine Kinase 41 CK-MB (CK-2) 0.78 Troponin I 0.087 NT-Pro-B Natriuret Pep 14597 H 08/29/16 08/29/16 08/29/16 07:33 07:33 13:04 Creatine Kinase 47 38 CK-MB (CK-2) 0.79 Troponin I 0.099 NT-Pro-B Natriuret Pep 08/29/16 08/31/16 13:04 03:55 Creatine Kinase CK-MB (CK-2) 0.74 Troponin I 0.092 NT-Pro-B Natriuret Pep 08609 H Impressions: Chest X-Ray 09/03/16 07:00 IMPRESSION: Stable appearance of the chest allowing for differences in inspiration. Support lines and tubes remain in place. Assessment & Plan - Diagnosis (1) Acute combined systolic (congestive) and diastolic (congestive) heart failure Is this a current diagnosis for this admission?: YesPlan: improving but persistent metabolic alkalosis (2) Altered awareness, transient Is this a current diagnosis for this admission?: YesPlan: CO2 narcosis (3) Acute hypercapnic respiratory failure Is this a current diagnosis for this admission?: YesPlan: ph alkalotic despite increased PCO2 (4) Acute hypoxemic respiratory failure Is this a current diagnosis for this admission?: YesPlan: Oxygenating well goal to keep sats between 90 and 92% - Time Critical Time spent with patient: 25-34 minutes
[2016-09-07] MEDS: ATORVASTATIN CALCIUM 20 MG TABLET NG SCH (22:17)
[2016-09-08] MEDS: NORMAL SALINE 1000 ML 1,000 ML IV PRN ×2 (02:28→19:01)
[2016-09-08] MEDS: PROPOFOL 100 ML IV PRN ×4 (05:18→22:05)
[2016-09-08] MEDS: HEPARIN SOD (PORCINE) 5,000 UNIT/ML 1 ML SYRINGE SUBCUT SCH ×3 (05:19→22:05)
[2016-09-08] MEDS: SITAGLIPTIN PHOSPHATE 50 MG TABLET NG SCH (10:57)
[2016-09-08] MEDS: RISPERIDONE 0.5 MG TAB.RAPDIS PO SCH ×2 (10:57→17:47)
[2016-09-08] MEDS: CEFEPIME 1 GM/D5W RTU 50 ML IV SCH ×2 (10:57→22:03)
[2016-09-08] MEDS: ASPIRIN 81 MG TABLET, CHEWABLE NG SCH (10:57)
[2016-09-08] MEDS: DONEPEZIL HCL 5 MG TABLET NG SCH (10:57)
[2016-09-08] MEDS: LEVOFLOXACIN 750 MG TABLET NG SCH (10:57)
[2016-09-08] MEDS: TOLTERODINE TARTRATE 1 MG TABLET NG SCH ×2 (10:57→22:04)
[2016-09-08] MEDS: METOPROLOL TARTRATE 25 MG TABLET PO SCH (10:58)
[2016-09-08] MEDS: VANCOMYCIN HCL 1,000 MG in DEXTROSE 5%-WATER 250 ML IV SCH (16:36)
--- NOTE | 2016-09-08 20:46 | PDOC PROGRESS REPORT ---
Subjective Progress Note for:: 09/08/16 Subjective:: Patient on mechanical ventilation, sedated Physical Exam Vital Signs: Temp Pulse Resp BP Pulse Ox 99.5 F 88 26 H 120/56 L 93 09/08/16 20:00 09/08/16 18:00 09/08/16 18:00 09/08/16 18:00 09/08/16 20:00 Intake & Output 09/07/16 09/08/16 09/09/16 06:59 06:59 06:59 Intake Total 2703 3513 1864 Output Total 1585 2445 2200 Balance 1118 1068 -336 Weight 65.8 kg 65.8 kg Eye exam: PRESENT: PERRLA Respiratory exam: PRESENT: rales Cardiovascular exam: PRESENT: +S1, +S2 GI/Abdominal exam: PRESENT: soft Results Laboratory Results: 09/06/16 03:52 09/06/16 03:52 09/07/16 20:05 Triglycerides 124 09/03/16 16:15 Blood Blood Culture - Final NO GROWTH IN 5 DAYS 09/03/16 14:50 Blood Blood Culture - Final NO GROWTH IN 5 DAYS 08/29/16 08/29/16 08/29/16 00:11 00:11 00:11 Creatine Kinase 41 CK-MB (CK-2) 0.78 Troponin I 0.087 NT-Pro-B Natriuret Pep 16263 H 08/29/16 08/29/16 08/29/16 07:33 07:33 13:04 Creatine Kinase 47 38 CK-MB (CK-2) 0.79 Troponin I 0.099 NT-Pro-B Natriuret Pep 08/29/16 08/31/16 13:04 03:55 Creatine Kinase CK-MB (CK-2) 0.74 Troponin I 0.092 NT-Pro-B Natriuret Pep [id number] H Impressions: Chest X-Ray 09/08/16 07:00 IMPRESSION: CHF. No significant change. Assessment & Plan - Diagnosis (1) Acute hypercapnic respiratory failure Is this a current diagnosis for this admission?: Yes (2) Acute combined systolic (congestive) and diastolic (congestive) heart failure Is this a current diagnosis for this admission?: Yes (3) Chronic obstructive pulmonary disease Qualifiers: COPD type: chronic bronchitis Chronic bronchitis type: unspecified Qualified Code(s): J42 - Unspecified chronic bronchitis Is this a current diagnosis for this admission?: Yes (4) Hypotension Qualifiers: Hypotension type: unspecified hypotension type Qualified Code(s): I95.9 - Hypotension, unspecified Is this a current diagnosis for this admission?: Yes
[2016-09-08] MEDS: ATORVASTATIN CALCIUM 20 MG TABLET NG SCH (22:04)
[2016-09-09 04:39] LABS: ABSOLUTE BASOPHILS # (AUTO) 0.1 10^3/uL (0.0-0.2); ABSOLUTE EOSINOPHILS # (AUTO) 0.4 10^3/uL (0.0-0.6); ABSOLUTE LYMPHOCYTES (AUTO) 1.4 10^3/uL (0.5-4.7); ABSOLUTE MONOCYTES (AUTO) 0.6 10^3/uL (0.1-1.4); ABSOLUTE NEUT (AUTO) 4.5 10^3/uL (1.7-8.2); BASOPHILS % (AUTO) 1.1 % (0-2); EOSINOPHILS % (AUTO) 6.1 % (0-6); HEMATOCRIT 28.5 % (36.0-47.0); HEMOGLOBIN 9.1 g/dL (12.0-15.5); HGB HCT DIFFERENCE -1.2; LYMPHOCYTES % (AUTO) 19.6 % (13-45); MEAN CORPUSCULAR HGB CONC 31.9 g/dL (32.0-36.0); MEAN CORPUSCULAR VOLUME 91 fl (80-97); MONOCYTES % (AUTO) 8.6 % (3-13); RED BLOOD COUNT 3.14 10^6/uL (3.72-5.28); RED CELL DISTRIBUTION WIDTH 17.1 % (11.5-14.0); SEGMENTED NEUTROPHILS % (AUTO) 64.6 % (42-78)
[2016-09-09 04:57] LABS: ANION GAP 7 (5-19); BLOOD UREA NITROGEN 14 mg/dL (7-20); CALCIUM 9.2 mg/dL (8.4-10.2); CARBON DIOXIDE 28 mmol/L (22-30); CHLORIDE 106 mmol/L (98-107); CREATININE RESULT 0.52 mg/dL (0.52-1.25); GLUCOSE 91 mg/dL (75-110); MAGNESIUM 1.9 mg/dL (1.6-2.3); POTASSIUM 4.8 mmol/L (3.6-5.0); SODIUM 141.1 mmol/L (137-145)
[2016-09-09 05:35] LABS: ARTERIAL BLOOD BASE EXCESS 2.2 mmol/L; ARTERIAL BLOOD O2 SATURATION 93.5 % (94-98)
[2016-09-09] MEDS: PROPOFOL 100 ML IV PRN (06:16)
[2016-09-09] MEDS: HEPARIN SOD (PORCINE) 5,000 UNIT/ML 1 ML SYRINGE SUBCUT SCH (06:16)
[2016-09-09] MEDS: RISPERIDONE 0.5 MG TAB.RAPDIS PO SCH (10:30)
[2016-09-09] MEDS: SITAGLIPTIN PHOSPHATE 50 MG TABLET NG SCH (10:39)
[2016-09-09] MEDS: DONEPEZIL HCL 5 MG TABLET NG SCH (10:39)
[2016-09-09] MEDS: ASPIRIN 81 MG TABLET, CHEWABLE NG SCH (10:39)
[2016-09-09] MEDS: TOLTERODINE TARTRATE 1 MG TABLET NG SCH (10:39)
[2016-09-09] MEDS: METOPROLOL TARTRATE 25 MG TABLET PO SCH (10:39)
[2016-09-09] MEDS ORDERED: MORPHINE SULFATE 10 MG/ML INJ IV PRN (10:48)
[2016-09-09] MEDS ORDERED: MIDAZOLAM 2 MG/2 ML INJ IV PRN (10:49)
[2016-09-09] MEDS ORDERED: MIDAZOLAM 2 MG/2 ML INJ ONE (11:15)
[2016-09-09 11:26] VITALS: BP 101/67
--- NOTE | 2016-09-09 17:40 | Death Summary ---
Summary Date : 09/09/16 Time of :: 11:30 Resuscitation Status: Do Not Resuscitate - Final Diagnosis (1) Acute hypercapnic respiratory failure Is this a current diagnosis for this admission?: Yes (2) Acute combined systolic (congestive) and diastolic (congestive) heart failure Is this a current diagnosis for this admission?: Yes (3) Chronic obstructive pulmonary disease Is this a current diagnosis for this admission?: Yes (4) Hypotension Is this a current diagnosis for this admission?: Yes (5) Ventilator associated pneumonia Is this a current diagnosis for this admission?: Yes Hospital Course:: Patient was admitted on 08/29/2016 when she presented with acute hypoxemic and hypercapnic respiratory failure due to combination of acute systolic and diastolic heart failure, initially when she was admitted. She was managed with positive pressure ventilation, BiPAP, despite use of BiPAP,Patient condition was unstable and she required mechanical ventilation. She was managed in intensive care unit on mechanical ventilation. She was followed by pulmonary. She was treated with Lasix infusion and Hospital course was complicated with hypotension and ventilator associated pneumonia. She required intravenous pressors to maintain blood pressure and also have antibiotic for the ventilator associated pneumonia. After prolonged intubation and mechanical ventilation,, she was ultimately weaned off the clinical ventilation and she couple of minutes after that The family decided to terminally weaned off the mechanical ventilation and she couple of minutes after she was weaned off of the mechanical ventilation.
== END 2016-09-09 12:19 | DRG 207 ==
LOC: ER 19:04 → UNDOADMIN 21:39 → EH 21:39 → 4N 08-29 01:43 → EH 08-29 01:43 → ICU 08-29 17:23
PROVIDERS: ADMIT Internal Medicine; ATTEND Internal Medicine
PROC: 5A09557 Assistance with Respiratory Ventilation, Greater than 96 Consecutive Hours, Continuous Positive Airway Pressure (ICD-10-PCS; 2016-08-28)
PROC: 3E0F73Z Introduction of Anti-inflammatory into Respiratory Tract, Via Natural or Artificial Opening (ICD-10-PCS; 2016-08-28)
PROC: 5A1955Z Respiratory Ventilation, Greater than 96 Consecutive Hours (ICD-10-PCS; principal; 2016-08-29)
PROC: 0BH17EZ Insertion of Endotracheal Airway into Trachea, Via Natural or Artificial Opening (ICD-10-PCS; 2016-08-29)
DX: J96.02 Acute respiratory failure with hypercapnia (principal); I50.43 Acute on chronic combined systolic (congestive) and diastolic (congestive) heart failure; G93.41 Metabolic encephalopathy; J69.0 Pneumonitis due to inhalation of food and vomit; J95.851 Ventilator associated pneumonia; I11.0 Hypertensive heart disease with heart failure; J44.9 Chronic obstructive pulmonary disease, unspecified; I48.91 Unspecified atrial fibrillation; I25.10 Atherosclerotic heart disease of native coronary artery without angina pectoris; E78.5 Hyperlipidemia, unspecified; I25.2 Old myocardial infarction; M19.90 Unspecified osteoarthritis, unspecified site; J96.01 Acute respiratory failure with hypoxia; E11.9 Type 2 diabetes mellitus without complications; I95.9 Hypotension, unspecified; F03.90 Unspecified dementia, unspecified severity, without behavioral disturbance, psychotic disturbance, mood disturbance, and anxiety; B95.2 Enterococcus as the cause of diseases classified elsewhere; B95.61 Methicillin susceptible Staphylococcus aureus infection as the cause of diseases classified elsewhere; Z78.1 Physical restraint status; Z66 Do not resuscitate; Z87.891 Personal history of nicotine dependence; Z79.899 Other long term (current) drug therapy
CPT/HCPCS: 31500; 36415; 36600; 51702; 71010; 80048; 80053; 80061; 80076; 80202; 80301; 81001; 82140; 82150; 82550; 82553; 82803; 82962; 83036; 83605; 83690; 83735; 83880; 84100; 84439; 84443; 84478; 84484; 85025; 85027; 85610; 85730; 87040; 87070; 87086; 87088; 87186; 87205; 93005; 93010; 94002; 94003; 94660; 99291; G0479; J0330; J0692; J1644; J1940; J2060; J2250; J2704; J3370; J3490; J7030; J7050; J7060; J7614